=== PATIENT | male | born 1945 | race Caucasian/White ===

== ENCOUNTER 2020-09-24 10:31 | Inpatient (IN) | payer OTHER, MEDICAID ==
[~2020-09-24] VITALS: Ht 170.2 cm; Wt 85.4 kg
[2020-09-24] VITALS (24 sets, daily range): BP systolic 64–122; BP diastolic 35–58
[2020-09-24] MEDS: NOREPINEPHRINE 8 MG/250ML KIT 250 ML IV SCH (10:52)
[2020-09-24 11:24] LABS: Basophils # (auto) 0 10 ^3/uL (0-0.2); Eosinophils # (auto) 0 10 ^3/uL (0-0.8); Eosinophils % (auto) 0.2 % (0.0-7.0); Monocytes # (auto) 1.2 10 ^3/uL (0-1.3)
[2020-09-24 11:26] LABS: Basophils % (auto) 0.2 % (0.0-2.0); Hematocrit 51.5 % (41.0-53.0); Hemoglobin 14.2 g/dL (13.5-17.5); Lymphocytes % (auto) 16.9 % (10.0-50.0); Mean Corpuscular Hemoglobin 31.4 pg (28.0-32.0); Mean Corpuscular Hgb Conc. 27.5 g/dL (32.0-36.0); Mean Corpuscular Volume 114.2 fL (80.0-100.0); Monocytes % (auto) 9.9 % (0.0-12.0); Neutrophils # (auto) 8.5 10 ^3/uL (1.6-8.6); Neutrophils % (auto) 72.8 % (37.0-80.0); Platelet Count (auto) 251 10^3/uL (140-450); White Blood Cell 11.7 10^3/uL (4.4-10.8)
[2020-09-24] MEDS ORDERED: SODIUM CHLORIDE 0.9% 1,000 ML IV ONE ×3 (11:30→12:00)
[2020-09-24 11:53] LABS: Urine Bacteria FEW /hpf (None Seen); Urine Blood Negative /uL (Negative); Urine Hyaline Cast MANY /lpf (0 - 2); Urine Mucus FEW (None Seen); Urine Specific Gravity 1.022 (1.001-1.035); Urine WBC 3 /hpf (0 - 3)
[2020-09-24 11:55] LABS: Albumin 3.1 g/dL (3.4-5.0); Calcium 9.2 mg/dL (8.5-10.1); Potassium 4.4 mmol/L (3.5-5.1)
[2020-09-24] MEDS ORDERED: SODIUM BICARBONATE 8.4 % INJ 50ML VIAL IV ONE ×3 (12:00→15:00)
[2020-09-24 12:09] LABS: Lactic Acid w/Reflex 6.5 mmol/L (0.4-2.0)
[2020-09-24 12:19] LABS: BUN/Creatinine Ratio 13.5; Bilirubin, Total 0.4 mg/dL (0.2-1.0); Total Protein 6.6 g/dL (6.4-8.2)
[2020-09-24] MEDS ORDERED: InsuLIN REG 1unit/0.01ml Soln (100units/ml) IV ONE (12:30)
[2020-09-24] MEDS ORDERED: DEXTROSE (50%) 50ML SYRG IV PRN ×2 (12:45→15:00)
[2020-09-24] MEDS ORDERED: InsuLIN R (HUMAN) 100 UNITS in SODIUM CHL 0.9% 99 ML IV SCH ×3 (12:45→21:15)
--- NOTE | 2020-09-24 13:04 | NUR ---
RT NOTE: FIO2 INCREASED TO 80% FROM 45% DUE TO SPO2 READING IN THE 80'S. RN ELIER AWARE OF CHANGE. WILL CONTINUE TO MONITOR.
[2020-09-24] MEDS ORDERED: ACCU-CHEK COMFORT CURVE STRIP VI SCH (13:30)
--- NOTE | 2020-09-24 14:00 | NUR ---
RT Transport Note: Patient transported to ct with ERNESTO Jordan. Patient transported to and from procedure manually ventilated with bvm at 15 lpm, 100% o2. Patient on court recording monitor with alarms set and audible. Patient returned to room with no adverse reaction noted. Transport completed without incident.
--- NOTE | 2020-09-24 14:46 | NUR ---
RT NOTE: FIO2 INCREASED TO 100% FROM 80% POST ABG RESULTS.
[2020-09-24] MEDS ORDERED: SODIUM BICARBONATE 50ML VIAL 50 ML in SOD CHL 0.45% 1,000 ML IV SCH (15:00)
[2020-09-24] MEDS ORDERED: INSULIN LANTUS (GLARGINE) 1 /0.01ml (100units/ml) SC ONE (15:00)
[2020-09-24] MEDS ORDERED: LACTATED RINGER'S 2,000 ML IV ONE (15:00)
[2020-09-24] MEDS ORDERED: NITROGLYCERIN 0.4 MG SL TAB SL PRN (15:00)
[2020-09-24] MEDS ORDERED: MORPHINE SULF INJ 2 MG/ML SYRINGE 1ML IV PRN (15:00)
[2020-09-24] MEDS: ACCU-CHEK COMFORT CURVE STRIP VI SCH ×6 (15:21→22:30)
[2020-09-24 15:56] LABS: BUN/Creatinine Ratio 15.8; Calcium 7.1 mg/dL (8.5-10.1); Magnesium 2.8 mg/dL (1.6-2.6); Potassium 3.9 mmol/L (3.5-5.1)
--- NOTE | 2020-09-24 17:00 | NUR ---
Arrival note Pt admitted from ER. Pt on portable ventilator and connected to ICU monitoring and ventilator. Received pt with IV to L FA 20G, R AC 20G, R wrist 22g. Iv's patent on assessment. Pt on insulin gtt at 10 units/hr with accucheck taken and monitor reading "critically HI". Orders fro STAT LAB draw to assess accurate glucose level for proper intervention. COMPUTER TECHNOLOGY INSTRUCTOR JUAN aware of glucose. COMPUTER TECHNOLOGY INSTRUCTOR stated he will put central line in. Levophed at max rate of 30mcg b/p 125/58. IV site patent and no signs of infiltration noted. LR infusing as second liter bolus per CMV DRIVER. NGT placed in left nare with accurate placement verified via air bolus. Pt positive cough and gag and breathing over ventilator. Versed started per MD order for synchronization with ventilator. Vergara catheter draining to gravity secured below bladder. Skin intact with macedo to chest from defib pads. Pt being ruled out for COVID. Gi swab negative. Awaiting inhouse test.
--- NOTE | 2020-09-24 17:15 | NUR ---
Dark brown/black emesis suctioned from ET TUBE
[2020-09-24] MEDS: MIDAZOLAM DRIP 50 mg/50mL 50 ML IV SCH (17:45)
[2020-09-24] MEDS: fentaNYL Drip 2500mCg/250mlNS 250 ML IV SCH (17:45)
--- NOTE | 2020-09-24 18:20 | NUR ---
Kali at [facility] for central line placement
--- NOTE | 2020-09-24 18:49 | NUR ---
Respiratory note: ABG DONE, CRITICAL RESULTS REPORTED TO Maru ROACH AND RN NOTIFIED OF ABG RESULTS. NO NEW RESPIRATORY ORDERS GIVEN AT THIS TIME, REPEAT ABG IN AM. WILL CONTINUE TO MONITOR.
[2020-09-24] MEDS: ALBUTEROL SULF 2.5 MG/0.5ML(0.5%) NEB SOLN NEB SCH (18:50)
[2020-09-24] MEDS: IPRATROPIUM BROM 0.5 MG/2.5ML INH SOL NEB SCH (18:50)
--- NOTE | 2020-09-24 18:51 | NUR ---
Respiratory note: MED NEB TX HELD AT THIS TIME. COVID TEST RESULTS PENDING, AUXILIARY OPERATOR JORGEO AT BEDSIDE FOR CENTRAL LINE PLACEMENT. PT IN NO RESPIRATORY DISTRESS. WILL CONTINUE TO MONITOR.
--- NOTE | 2020-09-24 19:10 | NUR ---
Chest x-ray for central line placement verification. RON palomo stated ok to use line
--- NOTE | 2020-09-24 19:40 | NUR ---
REPORT RECEIVED AND ASSUMED CARE; SEE INTERVENTIONS FOR ASSESSMENT; SEE IV SPREADSHEET FOR GTTS; VS STABLE WITH PT. ON LEVOPHED GTT; PT/ S/P CPR ENROUTE TO [facility]ESS [facility] ER; WILL CONT. TO MONITOR.
[2020-09-24] MEDS ORDERED: InsuLIN REG 1unit/0.01ml Soln (100units/ml) ONE (20:15)
--- NOTE | 2020-09-24 20:20 | NUR ---
Report given to ERNESTO Rodriguez
[2020-09-24 20:22] LABS: Calcium 7.4 mg/dL (8.5-10.1)
[2020-09-24 20:29] LABS: BUN/Creatinine Ratio 16.8
[2020-09-24 20:33] LABS: Potassium 2.6 mmol/L (3.5-5.1)
[2020-09-24] MEDS ORDERED: VASOPRESSIN 20 UNIT/ML ONE (20:57)
[2020-09-24] MEDS ORDERED: POTASSIUM CHL 20MEQ/100ML 200 ML IV ONE (21:03)
[2020-09-24] MEDS: POTASSIUM CHL 20MEQ/100ML 100 ML IV SCH ×2 (21:15→23:15)
[2020-09-24] MEDS: VASOPRESSIN 50 UNITS in D5W 5% 247.5 ML IV SCH (21:15)
[2020-09-24] MEDS: metroNIDAZOLE 500MG/100ML 100 ML IV SCH (22:00)
[2020-09-24] MEDS: CLINDAMYCIN 300MG IV 50 ML IV SCH (23:00)
[2020-09-24] MEDS ORDERED: ALBUMIN 5% 250 ML IV ONE ×2 (23:00→23:35)
[2020-09-25] VITALS (95 sets, daily range): BP systolic 67–186; BP diastolic 42–156
[2020-09-25] MEDS: InsuLIN R (HUMAN) 100 UNITS in SODIUM CHL 0.9% 99 ML IV SCH ×4 (00:15→20:07)
[2020-09-25] MEDS ORDERED: INSULIN LANTUS (GLARGINE) 1 /0.01ml (100units/ml) SC ONE (00:15)
[2020-09-25] MEDS: ACCU-CHEK COMFORT CURVE STRIP VI SCH ×22 (00:21→22:30)
[2020-09-25] MEDS ORDERED: InsuLIN REG 1unit/0.01ml Soln (100units/ml) ONE ×2 (00:27→04:30)
[2020-09-25] MEDS ORDERED: SODIUM BICARBONATE 8.4% INJ 50ML SYRINGE ONE (00:30)
[2020-09-25 01:30] LABS: INR 1.12 (0.9-1.15)
[2020-09-25 03:38] LABS: Hematocrit 35.2 % (41.0-53.0); Hemoglobin 11.9 g/dL (13.5-17.5); Mean Corpuscular Hemoglobin 31.6 pg (28.0-32.0); Mean Corpuscular Hgb Conc. 33.7 g/dL (32.0-36.0); Mean Corpuscular Volume 93.7 fL (80.0-100.0); Platelet Count (auto) 99 10^3/uL (140-450); Red Blood Cells 3.76 10^6/uL (4.5-5.90); Red Cell Distribution Width 13.5 % (11.8-14.3)
--- NOTE | 2020-09-25 03:50 | NUR ---
UPDATED DAUGHTER ON PLAN OF CARE/ ESTABLISHED NEW PASSWORD.
[2020-09-25 04:06] LABS: White Blood Cell 1.1 10^3/uL (4.4-10.8)
[2020-09-25 04:07] LABS: Basophils % (manual) 0 (0.0-2.0); Blast Cells 0; Eosinophils % (manual) 0 (0-7); Metamyelocytes % 0; Myelocytes % 0; Promyelocytes % 0; Reactive Lymphocytes 0
[2020-09-25 04:15] LABS: Albumin 2.6 g/dL (3.4-5.0); Calcium 7.5 mg/dL (8.5-10.1); Magnesium 2.1 mg/dL (1.6-2.6); Potassium 3.1 mmol/L (3.5-5.1)
[2020-09-25] MEDS ORDERED: SODIUM BICARBONATE 50ML VIAL 150 ML in SOD CHL 0.45% 1,000 ML IV SCH (04:15)
[2020-09-25 04:18] LABS: BUN/Creatinine Ratio 15.9; Bilirubin, Total 0.4 mg/dL (0.2-1.0); Total Protein 4.6 g/dL (6.4-8.2)
[2020-09-25 04:23] LABS: Phosphorus 0.8 mg/dL (2.5-4.90)
[2020-09-25 05:19] LABS: Band Neutrophils % (manual) 26; Lymphocytes % (manual) 16 (10.0-50.0); Monocytes % (manual) 12 (0-12)
--- NOTE | 2020-09-25 05:38 | NUR ---
PAGED HOSPITALIST FOR SECOND TIME.
[2020-09-25] MEDS: CLINDAMYCIN 300MG IV 50 ML IV SCH (06:00)
[2020-09-25] MEDS ORDERED: PHENYLEPHRINE IV 250 ML IV ONE (06:09)
[2020-09-25] MEDS ORDERED: POTASSIUM PHOSPHATE 22 MEQ in SODIUM CHL 0.9% 100 ML IV ONE (06:15)
[2020-09-25] MEDS: IPRATROPIUM BROM 0.5 MG/2.5ML INH SOL NEB SCH ×5 (06:20→23:53)
[2020-09-25] MEDS: ALBUTEROL SULF 2.5 MG/0.5ML(0.5%) NEB SOLN NEB SCH ×5 (06:20→23:53)
[2020-09-25] MEDS: metroNIDAZOLE 500MG/100ML 100 ML IV SCH (07:00)
--- NOTE | 2020-09-25 07:35 | NUR ---
REPORT REPORT RECEIVED FROM JAYLIN OROZCO, CARE ASSUMED.
[2020-09-25] MEDS: POTASSIUM CHL 20MEQ/100ML 100 ML IV SCH ×2 (07:57→08:15)
--- NOTE | 2020-09-25 09:00 | NUR ---
SEDATION VACATION HELD PATIENT TOO UNSTABLE FOR SEDATION VACATION AT THIS TIME. AWARE.
[2020-09-25] MEDS: PHENYLEPHRINE IV 250 ML IV SCH ×2 (09:33→14:18)
[2020-09-25] MEDS: MIDAZOLAM DRIP 50 mg/50mL 50 ML IV SCH (09:34)
--- NOTE | 2020-09-25 09:50 | NUR ---
MD VISIT DR.BAVEJA ALMANZA AT BEDSIDE. MD AWARE OF VENTILATOR SETTINGS, ABG, LABS, VITAL SIGNS, AND IV DRIPS. NEW VENT AND MEDICATION ORDERS RECEIVED. RT AT BEDSIDE TO MAKE VENT CHANGES.
[2020-09-25] MEDS: INSULIN LANTUS (GLARGINE) 1 /0.01ml (100units/ml) SC SCH (10:00)
[2020-09-25] MEDS: PANTOPRAZOLE 40 MG/10 ML VIAL INJ IV SCH (10:09)
[2020-09-25] MEDS: ENOXAPARIN SOD 30 MG/0.3 ML SYRINGE SC SCH (10:09)
[2020-09-25] MEDS ORDERED: OPTISON 3ml Vial for INJ IV ONE ×2 (10:30→10:37)
--- NOTE | 2020-09-25 10:30 | NUR ---
ECHO HEEL PAINTER AT BEDSIDE.
[2020-09-25] MEDS: NOREPINEPHRINE 8 MG/250ML KIT 250 ML IV SCH ×2 (10:31→14:18)
--- NOTE | 2020-09-25 11:20 | NUR ---
IN-HOUSE COVID SWAB SWAB OBTAINED AND WALKED TO LAB.
[2020-09-25] MEDS ORDERED: PIPERACILLIN-TAZOB 2.25GM 50 ML IV SCH (12:00)
[2020-09-25] MEDS ORDERED: PIPERACILLIN-TAZOB 3.375GM 100 ML IV SCH (12:00)
[2020-09-25] MEDS: HYDROCORTISONE SOD SUCC 100 MG/2ML INJ VIAL IV SCH ×2 (12:00→17:46)
--- NOTE | 2020-09-25 12:20 | NUR ---
LINENS/CARE ORAL CARE COMPLETE. PARTIAL LINEN CHANGE COMPLETE. PATIENT REPOSITIONED ON SIDE. ALL EXTREMITIES OFF LOADED ON PILLOWS. RECTAL TEMPERATURE 101.5, ICE PACKS APPLIED TO TRUNK. PT WITHDRAWAL FROM PAIN. NOT OPENING EYES. BREATHING OVER VENT AND INTERMITTENTLY STACKING BREATHS. WILL CONTINUE TO MONITOR.
--- NOTE | 2020-09-25 12:45 | NUR ---
WOUND PHOTO PHOTOGRAPHS OBTAINED OF BUTTOCKS AND RIGHT LATERAL EAR.
--- NOTE | 2020-09-25 12:50 | NUR ---
MD VISIT AT BEDSIDE ASSESSING PATIENT.
--- NOTE | 2020-09-25 13:10 | NUR ---
DESATURATION AFTER ACTIVITY PATIENTS O2 SATURATION DROPPED TO 82%. WITH FIO2 BOOST, PATIENT ONLY ABLE TO MAINTAIN 85%. RT PAGED. FIO2 INCREASED TO 80%. PATIENT O2 SATURATION STILL ONLY MAINTAINING 86%, ETT SUCTIONING PERFORMED. BROWN SECRETIONS NOTED AT BASE. FIO2 INCREASED TO 90% ON VENTILATOR. O2 SATURATION NOW 90%. WILL CONTINUE TO MONITOR.
--- NOTE | 2020-09-25 13:22 | NUR ---
MD VISIT Remberto VILLAGRAN. MD AWARE OF IV DRIPS, LABS, AND VITAL SIGNS. MD PLANS TO CALL PATIENT DAUGHTER AND UPDATE ON STATUS.
--- NOTE | 2020-09-25 13:35 | NUR ---
MD VISIT DR.OLADELE ALMANZA AT BEDSIDE. MD REVIEWING MEDICAL CHART.
[2020-09-25] MEDS ORDERED: PIPERACILLIN-TAZO 4.5GM 100 ML IV SCH (14:00)
[2020-09-25] MEDS: LINEZOLID 600MG/300ML 300 ML IV SCH (14:28)
[2020-09-25] MEDS: fentaNYL Drip 2500mCg/250mlNS 250 ML IV SCH (15:00)
[2020-09-25] MEDS: PHENYLEPHRINE INJ 40 MG in SODIUM CHL 0.9% 250 ML IV SCH (15:30)
--- NOTE | 2020-09-25 15:50 | NUR ---
TEMPERATURE PATIENT RECTAL TEMP REACHING 102.0. COOLING MEASURES CONTINUED. COOLING BLANKET PLACED ON TOP OF PATIENT.
[2020-09-25] MEDS: AZITHROMYCIN 500MG/ 250ML 250 ML IV SCH (16:00)
[2020-09-25 16:39] LABS: Basophils # (auto) 0 10 ^3/uL (0-0.2); Basophils % (auto) 0.1 % (0.0-2.0); Eosinophils # (auto) 0 10 ^3/uL (0-0.8); Eosinophils % (auto) 0.2 % (0.0-7.0); Hematocrit 34.5 % (41.0-53.0); Lymphocytes # (auto) 0.5 10 ^3/uL (0.4-5.4); Mean Corpuscular Hemoglobin 31.5 pg (28.0-32.0); Mean Corpuscular Hgb Conc. 34.8 g/dL (32.0-36.0); Mean Corpuscular Volume 90.6 fL (80.0-100.0); Monocytes # (auto) 0.4 10 ^3/uL (0-1.3); Monocytes % (auto) 5.9 % (0.0-12.0); Neutrophils # (auto) 5.2 10 ^3/uL (1.6-8.6); Neutrophils % (auto) 85.8 % (37.0-80.0); Nucleated Red Blood Cells % 0.1 %; Platelet Count (auto) 92 10^3/uL (140-450); Red Blood Cells 3.81 10^6/uL (4.5-5.90); Red Cell Distribution Width 13.9 % (11.8-14.3)
[2020-09-25 16:54] LABS: INR 1.3 (0.9-1.15)
[2020-09-25 16:55] LABS: Partial Thromboplastin Time 34.7 sec (23.0-31.2)
[2020-09-25 17:00] LABS: Albumin 2.2 g/dL (3.4-5.0); Magnesium 1.4 mg/dL (1.6-2.6); Potassium 3.7 mmol/L (3.5-5.1)
[2020-09-25 17:03] LABS: Bilirubin, Direct 0.3 mg/dL (0-0.2); Bilirubin, Total 0.5 mg/dL (0.2-1.0); Total Protein 4.4 g/dL (6.4-8.2)
[2020-09-25 17:07] LABS: Phosphorus 1.8 mg/dL (2.5-4.90)
--- NOTE | 2020-09-25 17:31 | NUR ---
ADMISSION PAST MEDICAL HISTORY HARD TO OBTAIN. SISTER STATED HE WAS DIABETIC, NEW DIAGNOSED BUT UNABLE TO PROVIDE FURTHER INFORMATION. PATIENT DOES NOT GO TO [facility]CTORS FOR CHECK UP'S. PATIENT WAS ADOPTED SO UNKNOWN FAMILY HISTORY. PATIENT LIVES ALONE IN MOBILE HOME.
[2020-09-25] MEDS: SODIUM BICARBONATE 50ML VIAL 75 ML in SOD CHL 0.45% 1,000 ML IV SCH (17:34)
--- NOTE | 2020-09-25 18:00 | NUR ---
COOLING MEASURES COOLING BLANKET PLACED UNDER PATIENT. NEW ICE PACKS APPLIED TO TRUNK. RECTAL TEMPERATURE 102.2. WILL CONTINUE TO MONITOR.
--- NOTE | 2020-09-25 18:03 | NUR ---
PAGED NOTIFIED OF CMP RESULTS. ORDERS OBTAINED FOR MAGNESIUM AND CALCIUM REPLACEMENT.
[2020-09-25] MEDS ORDERED: CALCIUM GLUC 4.65meq/50ml D5AE 50 ML IV ONE (18:15)
--- NOTE | 2020-09-25 19:26 | NUR ---
REPORT REPORT GIVEN TO JAYLIN OROZCO, CARE ENDORSED.
[2020-09-25] MEDS ORDERED: MAGNESIUM SULFATE 1GM/100ML 100 ML IV ONE (19:30)
--- NOTE | 2020-09-25 21:19 | NUR ---
SEDATION VACATION NOT PERFORMED IT IS NOT APPROPRIATE AT THIS TIME.
[2020-09-25] MEDS: MEROPENEM 500MG IVPB 50 ML IV SCH (22:21)
[2020-09-26] VITALS (103 sets, daily range): BP systolic 88–221; BP diastolic 54–112
[2020-09-26] MEDS: SODIUM BICARBONATE 50ML VIAL 75 ML in SOD CHL 0.45% 1,000 ML IV SCH ×3 (00:45→22:15)
[2020-09-26] MEDS: ACCU-CHEK COMFORT CURVE STRIP VI SCH ×11 (00:47→23:47)
[2020-09-26] MEDS: InsuLIN R (HUMAN) 100 UNITS in SODIUM CHL 0.9% 99 ML IV SCH (00:59)
[2020-09-26] MEDS: HYDROCORTISONE SOD SUCC 100 MG/2ML INJ VIAL IV SCH ×5 (01:09→23:47)
[2020-09-26] MEDS: LINEZOLID 600MG/300ML 300 ML IV SCH ×2 (02:00→13:40)
[2020-09-26 05:10] LABS: Basophils # (auto) 0 10 ^3/uL (0-0.2); Basophils % (auto) 0.1 % (0.0-2.0); Eosinophils # (auto) 0 10 ^3/uL (0-0.8); Eosinophils % (auto) 0.1 % (0.0-7.0); Hemoglobin 12.5 g/dL (13.5-17.5); Lymphocytes # (auto) 0.7 10 ^3/uL (0.4-5.4); Lymphocytes % (auto) 6.5 % (10.0-50.0); Mean Corpuscular Hgb Conc. 32.9 g/dL (32.0-36.0); Mean Corpuscular Volume 94.1 fL (80.0-100.0); Monocytes # (auto) 0.6 10 ^3/uL (0-1.3); Neutrophils # (auto) 10.1 10 ^3/uL (1.6-8.6); Neutrophils % (auto) 88.3 % (37.0-80.0); Nucleated Red Blood Cells % 0.1 %; Platelet Count (auto) 85 10^3/uL (140-450); Potassium 4.5 mmol/L (3.5-5.1); Red Blood Cells 4.04 10^6/uL (4.5-5.90); Red Cell Distribution Width 14.6 % (11.8-14.3); White Blood Cell 11.5 10^3/uL (4.4-10.8)
[2020-09-26 05:21] LABS: Albumin 2.1 g/dL (3.4-5.0); BUN/Creatinine Ratio 17.3; Bilirubin, Direct 0.3 mg/dL (0-0.2); Bilirubin, Total 0.5 mg/dL (0.2-1.0); Calcium 6.3 mg/dL (8.5-10.1); INR 1.44 (0.9-1.15); Magnesium 1.7 mg/dL (1.6-2.6); Partial Thromboplastin Time 38.5 sec (23.0-31.2); Total Protein 4.7 g/dL (6.4-8.2)
[2020-09-26] MEDS: ALBUTEROL SULF 2.5 MG/0.5ML(0.5%) NEB SOLN NEB SCH ×4 (06:45→23:46)
[2020-09-26] MEDS: IPRATROPIUM BROM 0.5 MG/2.5ML INH SOL NEB SCH ×4 (06:45→23:46)
--- NOTE | 2020-09-26 07:25 | NUR ---
REPORT REPORT RECEIVED FROM JAYLIN OROZCO, CARE ASSUMED. VS STABLE AT THIS TIME. WILL CONTINUE TO MONITOR.
--- NOTE | 2020-09-26 07:30 | NUR ---
INSULIN GTT INSULIN GTT ALGORITHM DECREASED TO ALGORITHM I. BLOOD SUGAR 167, RATE 1.5 UNITS/HR PER PROTOCOL.
[2020-09-26] MEDS: VASOPRESSIN 50 UNITS in D5W 5% 247.5 ML IV SCH ×2 (07:51→21:52)
[2020-09-26] MEDS: NOREPINEPHRINE BITARTRATE 16 MG in SODIUM CHL 0.9% 250 ML IV SCH ×2 (07:52→13:54)
[2020-09-26] MEDS ORDERED: InsuLIN R (HUMAN) 100 UNITS in SODIUM CHL 0.9% 99 ML IV SCH (08:00)
[2020-09-26] MEDS: PHENYLEPHRINE INJ 40 MG in SODIUM CHL 0.9% 250 ML IV SCH (08:10)
--- NOTE | 2020-09-26 08:59 | NUR ---
SEDATION VACATION HELD PATIENT REQUIRING HIGH FIO2 AND VASOPRESSOR THERAPY. UNSTABLE HEMODYNAMICALLY. AWARE.
--- NOTE | 2020-09-26 09:20 | NUR ---
HEMATOLOGY CONSULT DR.NANDA ALMANZA AT BEDSIDE.
--- NOTE | 2020-09-26 09:27 | NUR ---
GI CONSULT AT BEDSIDE ASSESSING PATIENT. REVIEWING MEDICAL CHART.
[2020-09-26] MEDS: MIDAZOLAM DRIP 50 mg/50mL 50 ML IV SCH (09:30)
--- NOTE | 2020-09-26 09:30 | NUR ---
Respiratory note: FIO2 DECREASED TO 80% .
[2020-09-26] MEDS: MEROPENEM 500MG IVPB 50 ML IV SCH ×2 (09:46→21:52)
[2020-09-26] MEDS: PANTOPRAZOLE 40 MG/10 ML VIAL INJ IV SCH (09:46)
--- NOTE | 2020-09-26 10:00 | NUR ---
MD VISIT DR.BAVEJA ALMANZA AT BEDSIDE. MD ORDERED FOR INSULIN GTT TO BE DISCONTINUED AND PLACED ON SLIDING SCALE.
--- NOTE | 2020-09-26 10:00 | NUR ---
WOUND CARE NOTE: IN TO SEE PATIENT AT THIS TIME PER WOUND CARE CONSULT REQUEST. PATIENT WAS NOTED UPON PRESENTATION TO THE ICU TO HAVE MULTIPLE SKIN INTEGRITY ISSUES. WOUND PHOTOS TAKEN AT THAT TIME BY BEDSIDE NURSE FOR REFERENCE, WOUND CONSULT ORDERED. PATIENT ADMITTED TO [facility] WITH DIAGNOSIS OF CARDIAC ARREST, DKA. CURRENT JAZMIN SCORE IS 10. PATIENT IS INTUBATED, SEDATED. SKIN/WOUND CARE PLAN UPDATED. PATIENT TURNED TO RIGHT SIDE TO VISUALIZE SACRAL WOUNDS. PATIENT IS NOTED TO HAVE MULTIPLE DEEP TISSUE INJURY PRESSURE INJURIES. PATIENT HAS DTI'S NOTED TO RIGHT SACRUM X 2, WITH OPEN BLISTER OVER UPPER SACRAL DTI. LEFT SACRUM HAS INTACT SERUM FILLED BLISTER NOTED TO UPPER LEFT SACRUM NEAR INTRAGLUTEAL FOLD, AND INTACT DTI TO THE LEFT SACRUM. PATIENT HAS ZGUARD AND OPTIFOAM GENTLE SACRAL DRESSING APPLIED TO UPPER DTI'S. PATIENT REPOSITIONED ONTO LEFT SIDE, REDISTRIBUTING PRESSURE POINTS WITH PILLOWS. PATIENT ALSO NOTED TO HAVE A DARK PURPLE DTI NOTED TO RIGHT EARLOBE. LEFT OPEN TO AIR. MEDIAL CHEST HAS CONTACT CASILLAS THAT ARE SCABBED CLOSED TO THE CHEST FOLLOWING CPR. LEFT OPEN TO AIR. NEW WOUND PHOTOS TAKEN AT THIS TIME FOR REFERENCE. RECOMMEND: FREQUENT SIDE TO SIDE POSITIONING, AVOIDING SUPINE Q 2 HOURS, PRN CONDITION PERMITS, WITH PRESSURE REDISTRIBUTION USING PILLOWS/WEDGES, BID/PRN APPLICATION WITH ZGUARD TO OPEN SACRAL WOUND, COVERING UPPER MEDIAL SACRUM WITH OPTIFOAM GENTLE SACRAL DRESSING, AVOID MASSAGE OF ANY MAROON OR PURPLE SKIN AREAS, ICU LOW AIRLOSS BED, TRANSFERRING PATIENT ONTO AIR BED IF SENT TO TELE FLOOR; SKIN/WOUND CARE PLAN, DIETARY CONSULT, CONTINUED MONITORING BY WOUND CARE TEAM. Addendum: 09/26/20 at 1355 by Nora Forbes RN Amended: Links added.
[2020-09-26] MEDS: ENOXAPARIN SOD 30 MG/0.3 ML SYRINGE SC SCH (10:02)
--- NOTE | 2020-09-26 10:10 | NUR ---
LOVENOX AWARE OF LOW TRENDING PLATELET COUNT. MD WISHES TO CONTINUE WITH LOVENOX LONG PLATELET COUNT IS GREATER THAN 50 AND NO SIGNS OF ACTIVE BLEEDING NOTED.
[2020-09-26] MEDS: INSULIN LANTUS (GLARGINE) 1 /0.01ml (100units/ml) SC SCH (10:23)
[2020-09-26] MEDS: InsuLIN REG 1unit/0.01ml Soln (100units/ml) SC SCH ×4 (11:54→23:41)
--- NOTE | 2020-09-26 12:17 | NUR ---
Nutrition Assessment Please see attached link for complete assessment Est energy needs BW 86 [phone] kcal (23-25 kcal/kg BW), Est protein needs: 68-86 g (0.8-1.0g/kg BW r/t elev RFT severe hypoalb) Will reassess prn. Addendum: 09/26/20 at [address] Amended: Links added.
--- NOTE | 2020-09-26 13:16 | NUR ---
MD VISIT Remberto VILLAGRAN AND DR.OLADELE ALMANZA AT BEDSIDE. MD'S AWARE OF IV DRIPS AND VITAL SIGNS. Anabelle VILLAGRAN. WANTING TO ATTEMPT SEDATION HOLIDAY TO ASSESS NEURO STATUS.
--- NOTE | 2020-09-26 13:20 | NUR ---
SEDATION HOLIDAY ALL SEDATION TITRATED OFF FOR SEDATION HOLIDAY PER MD REQUEST.
[2020-09-26] MEDS ORDERED: FUROSEMIDE 20 MG/2 ML VIAL IV ONE (13:30)
--- NOTE | 2020-09-26 14:49 | NUR ---
FAMILY PATIENT DAUGHTER DEVON CALLED FOR UPDATE. PASSWORD PROVIDED. UPDATED ON STATUS AND PLAN OF CARE.
[2020-09-26] MEDS: fentaNYL Drip 2500mCg/250mlNS 250 ML IV SCH ×2 (15:00→23:08)
[2020-09-26] MEDS: AZITHROMYCIN 500MG/ 250ML 250 ML IV SCH (15:56)
--- NOTE | 2020-09-26 16:30 | NUR ---
CHG BATH CHG BATH AND PARTIAL LINEN CHANGE COMPLETE. ORAL CARE PERFORMED. PATIENT TOLERATED ACTIVITY WELL. NO DESATURATION NOTED. VS REMAIN STABLE AT THIS TIME. PATIENT DOES NOT OPEN EYES OR ATTEMPT TO MOVE EXTREMITIES. ALL EXTREMITIES OFF LOADED ON PILLOWS. ALARMS IN PLACE. BED LOCKED IN LOWEST POSITION.
--- NOTE | 2020-09-26 17:50 | NUR ---
ROUNDING NOTE PATIENT CONTINUES TO STAY OFF SEDATION AT THIS TIME. PATIENT HAS NOT BEGUN TO WAKE UP OR ATTEMPT TO OPEN EYES. VS REMAIN STABLE AND PATIENT CONTINUES TO TOLERATE VENTILATION. COUGH AND GAG HYPOACTIVE. WILL CONTINUE TO MONITOR.
--- NOTE | 2020-09-26 19:09 | NUR ---
REPORT REPORT GIVEN TO LION OROZCO, CARE ENDORSED.
--- NOTE | 2020-09-26 20:15 | NUR ---
OPENING NOTE: INTUBATED AND OFF SEDATION. UNRESPONSIVE, EVEN TO NOXIOUS STIMULI. PUPILS PINPOINT, DIFFICULT TO ASSESS REACTIVITY TO LIGHT. SINUS TACHY, HR 100s. SBP > 100, MAP > 65 ON LEVOPHED AND VASOPRESSIN GTT. 7.0 ETT, 24 AT THE LIP. LS INTERMITTENTLY CLEAR, INTERMITTENTLY WITH RHONCHI, AND DIMINISHED THROUGHOUT. STACKING BREATHS IN THE 20s. SpO2>95% ON CURRENT VENT SETTINGS. NGT TO LIS, + AIR BOLUS, BILIOUS OUTPUT. ABD SOFT. HYPOACTIVE BS. UNKNOWN LBM. LISA PATENT AND INTACT, SCROTUM AND PENIS EDEMATOUS, YELLOW URINE OUTPUT. SEE SKIN AND WOUND FLOWSHEET FOR ASSESSMENT. LEFT IJ TLC, CDI, AND PATENT WITH BLOOD RETURN. RIGHT AC 20 G PIV, CDI, AND PATENT WITH BLOOD RETURN. LEFT FOREARM 20 G PIV, CDI, AND PATENT WITH BLOOD RETURN. REINFORCED POC. MAINTAINED PATIENT SAFETY: BED LOCKED AND IN THE LOWEST POSITION, FREQUENT VISUAL CHECKS. SOFT MITTENS ON FOR SAFETY WILL CONT CARE
--- NOTE | 2020-09-26 21:00 | NUR ---
SEDATION VACATION: SEDATION OFF SINCE THIS AFTERNOON. Addendum: 09/26/20 at 2202 by Irina Adams RN RN Amended: Links added.
--- NOTE | 2020-09-26 23:13 | NUR ---
FENTANYL GTT RESTARTED: BREATHING IN THE 30s WITH DESATURATION NOTED. NOTED TO BE GROSSLY UNRESPONSIVE STILL, BUT MOVING JAW NOW. VSS. WILL CONT CARE
[2020-09-27] VITALS (104 sets, daily range): BP systolic 79–157; BP diastolic 48–89
[2020-09-27] MEDS: PHENYLEPHRINE INJ 40 MG in SODIUM CHL 0.9% 250 ML IV SCH ×2 (00:20→16:53)
--- NOTE | 2020-09-27 02:00 | NUR ---
DESATURATION DOWN TO 85% S/P LINEN CHANGE: RR IN THE 30s, STACKING BREATHS. ELIER, RT MADE AWARE. FiO2 INCREASED TO 70%. 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
--- NOTE | 2020-09-27 02:00 | NUR ---
WOUND CARE NOTE: SACRUM: REMOVED PREVIOUS DRESSING. SMALL OPEN AREA WITH MINIMAL DRAINAGE. CLEANSED WITH SOAP AND WATER. PAT DRY WITH STERILE GAUZE, COVERED WITH GENTLE OPTIFOAM.
--- NOTE | 2020-09-27 02:00 | NUR ---
BED BATH WITH CHG WIPES, MARIE CARE, LISA CARE, ORAL CARE, AND PARTIAL LINEN CHANGE COMPLETED
--- NOTE | 2020-09-27 02:30 | NUR ---
SpO2>92% ON 70% FiO2
[2020-09-27] MEDS: LINEZOLID 600MG/300ML 300 ML IV SCH ×2 (02:39→13:51)
[2020-09-27] MEDS: SODIUM BICARBONATE 50ML VIAL 75 ML in SOD CHL 0.45% 1,000 ML IV SCH ×2 (02:39→13:50)
[2020-09-27] MEDS: ACCU-CHEK COMFORT CURVE STRIP VI SCH ×6 (03:53→23:35)
[2020-09-27] MEDS: InsuLIN REG 1unit/0.01ml Soln (100units/ml) SC SCH ×6 (03:53→23:35)
--- NOTE | 2020-09-27 04:00 | NUR ---
FAMILY UPDATE: SPOKE WITH PATIENT'S DAUGHTER, DEVON. AFTER PASSWORD VERIFIED UPDATED ON PATIENT'S STATUS. PER DEVON, SHE WORKS AT THE [employer] IN [place] FROM [phone] TODAY AND TOMORROW AND WILL BE UNABLE TO ANSWER HER CELL PHONE AT THAT TIME. SHE STATES THAT SHE LAST SPOKE WITH DR. AMAYA SEVERAL DAYS AGO AND IF HE NEEDS TO GET A HOLD OF HER, IT WILL BE AFTER 1430. DEVON STATES THAT SHE SPOKE WITH THE FAMILY, AND CURRENTLY THEY WANT TO GIVE THE PATIENT MORE TIME BEFORE MAKING ANY DECISIONS REGARDING VARNISHER PLAN OF CARE. WILL ENDORSE TO DAY SHIFT.
--- NOTE | 2020-09-27 04:00 | NUR ---
FiO2 DECREASED BY RT, SpO2>95%
[2020-09-27 04:13] LABS: Basophils # (auto) 0 10 ^3/uL (0-0.2); Basophils % (auto) 0.1 % (0.0-2.0); Eosinophils # (auto) 0 10 ^3/uL (0-0.8); Hematocrit 30.7 % (41.0-53.0); Hemoglobin 10.8 g/dL (13.5-17.5); Lymphocytes # (auto) 0.3 10 ^3/uL (0.4-5.4); Lymphocytes % (auto) 3.2 % (10.0-50.0); Mean Corpuscular Hemoglobin 31.8 pg (28.0-32.0); Mean Corpuscular Volume 90.7 fL (80.0-100.0); Monocytes # (auto) 0.3 10 ^3/uL (0-1.3); Monocytes % (auto) 2.4 % (0.0-12.0); Neutrophils # (auto) 10.1 10 ^3/uL (1.6-8.6); Neutrophils % (auto) 94.3 % (37.0-80.0); Nucleated Red Blood Cells % 0.2 %; Platelet Count (auto) 77 10^3/uL (140-450); Red Blood Cells 3.39 10^6/uL (4.5-5.90); Red Cell Distribution Width 14.6 % (11.8-14.3); White Blood Cell 10.7 10^3/uL (4.4-10.8)
[2020-09-27] MEDS: NOREPINEPHRINE BITARTRATE 16 MG in SODIUM CHL 0.9% 250 ML IV SCH ×2 (04:32→17:46)
[2020-09-27 04:33] LABS: Albumin 1.9 g/dL (3.4-5.0); Magnesium 1.6 mg/dL (1.6-2.6); Potassium 3.2 mmol/L (3.5-5.1)
[2020-09-27 04:36] LABS: BUN/Creatinine Ratio 19.2; Bilirubin, Direct 0.3 mg/dL (0-0.2); Bilirubin, Total 0.7 mg/dL (0.2-1.0); Total Protein 4.5 g/dL (6.4-8.2)
[2020-09-27 04:43] LABS: Calcium 5.8 mg/dL (8.5-10.1)
[2020-09-27 04:45] LABS: INR 1.38 (0.9-1.15); Partial Thromboplastin Time 43.8 sec (23.0-31.2)
--- NOTE | 2020-09-27 04:56 | NUR ---
CRITICAL CALCIUM: LAB CALLED WITH CRITICAL CALCIUM OF 5.8. ALBUMIN IS 1.9. CORRECTED CALCIUM FOR HYPOALBUMINEMIA IS 7.5. WILL ENDORSE TO DAY SHIFT.
--- NOTE | 2020-09-27 05:19 | NUR ---
NEURO STATUS: REMAINS GROSSLY UNRESPONSIVE. HOWEVER, WITH NOXIOUS STIMULI, RR INCREASES TO MID TO HIGH 20s. WILL KEEP SEDATION IS FOR VENTILATOR SYNCHRONY
[2020-09-27] MEDS: HYDROCORTISONE SOD SUCC 100 MG/2ML INJ VIAL IV SCH ×4 (05:29→23:35)
--- NOTE | 2020-09-27 05:30 | NUR ---
SCROTUM/SACRUM OOZING SEROUS FLUID: PLACED PILLOW CASE AROUND SCROTUM TO WICK MOISTURE.
[2020-09-27] MEDS: ALBUTEROL SULF 2.5 MG/0.5ML(0.5%) NEB SOLN NEB SCH ×3 (06:35→18:34)
[2020-09-27] MEDS: IPRATROPIUM BROM 0.5 MG/2.5ML INH SOL NEB SCH ×3 (06:35→18:34)
--- NOTE | 2020-09-27 07:23 | NUR ---
REPORT AND CARE ENDORSED TO ERNESTO CARTER
--- NOTE | 2020-09-27 07:30 | NUR ---
Opening Shift Note Assumed care of patient, ET to [facility] vent, sedated. No S/S of distress/SOB or pain. LT nare NGT to LIS draining yellow green, minimal amount. See interventions for complete assessment. Bed locked on low position, side rails up x2, bed alarms on at all times, will continue to monitor for changes Q1hr and PRN.
--- NOTE | 2020-09-27 08:20 | NUR ---
Dr Reyes at bedside, updated on patient's status. Patient seen and examined. Will carry out new orders.
[2020-09-27] MEDS: INSULIN LANTUS (GLARGINE) 1 /0.01ml (100units/ml) SC SCH (09:48)
[2020-09-27] MEDS: PANTOPRAZOLE 40 MG/10 ML VIAL INJ IV SCH (10:00)
[2020-09-27] MEDS: MEROPENEM 500MG IVPB 50 ML IV SCH ×2 (10:00→21:36)
--- NOTE | 2020-09-27 10:54 | NUR ---
Paged Dr Bowden regarding patient's potassium 3.2, calcium 5.8, platelet 77. Lovenox on hold. Awaiting call back.
--- NOTE | 2020-09-27 12:56 | NUR ---
Dr Remberto Singh at bedside, updated on patient's status. Informed of potassium 3.2, calcium 5.8, platelet 77. Orders received, read back and verified. Will carry out.
[2020-09-27] MEDS ORDERED: POTASSIUM CHL 20MEQ/100ML 100 ML IV ONE (13:00)
[2020-09-27] MEDS: ENOXAPARIN SOD 30 MG/0.3 ML SYRINGE SC SCH (13:51)
--- NOTE | 2020-09-27 14:43 | NUR ---
Dr Jimenez at bedside, updated on patient's status. Patient seen and examined. Will carry out new orders.
--- NOTE | 2020-09-27 14:50 | NUR ---
Patient out of room to Head CT.
[2020-09-27] MEDS: MIDAZOLAM DRIP 50 mg/50mL 50 ML IV SCH (15:00)
--- NOTE | 2020-09-27 15:17 | NUR ---
Patient back to room from CT.
--- NOTE | 2020-09-27 15:36 | NUR ---
Urine sample sent to lab.
--- NOTE | 2020-09-27 15:48 | NUR ---
Received call from patient's daughter Maya who's able to provide password. Updated on patient's status and POC, verbalized understanding. All questions and concerns addressed.
[2020-09-27] MEDS: AZITHROMYCIN 500MG/ 250ML 250 ML IV SCH (15:59)
[2020-09-27 16:24] LABS: Alcohol, Urine < 3.0 mg/dL (0-10); Amphetamine Screen, Urine NEGATIVE (NEGATIVE); Barbiturate Scree,Urine NEGATIVE (NEGATIVE); Benzodiazephine Screen, Urine POSITIVE (NEGATIVE); Cannabinoid Screen, Urine NEGATIVE (NEGATIVE); Cocaine Screen, Urine NEGATIVE (NEGATIVE); Opiate Scree,Urine NEGATIVE (NEGATIVE); Phencyclidine Screen, Urine NEGATIVE (NEGATIVE)
--- NOTE | 2020-09-27 20:15 | NUR ---
OPENING NOTE: INTUBATED AND ON LIGHT SEDATION. UNRESPONSIVE, EVEN TO NOXIOUS STIMULI. PUPILS PINPOINT, DIFFICULT TO ASSESS REACTIVITY TO LIGHT. NSR TO SINUS TACH, HR 90-100s. SBP > 100, MAP > 65 ON LEVOPHED AND VASOPRESSIN GTT. 7.0 ETT, 24 AT THE LIP. LS INTERMITTENTLY CLEAR, ANDDIMINISHED THROUGHOUT. STACKING BREATHS IN THE 20s. SpO2>95% ON CURRENT VENT SETTINGS. NGT TO LIS, + AIR BOLUS, BILIOUS OUTPUT. ABD SOFT. HYPOACTIVE BS. UNKNOWN LBM. LISA PATENT AND INTACT, SCROTUM AND PENIS EDEMATOUS, YELLOW URINE OUTPUT. SEE SKIN AND WOUND FLOWSHEET FOR ASSESSMENT. LEFT IJ TLC, CDI, AND PATENT WITH BLOOD RETURN. RIGHT AC 20 G PIV, CDI, AND PATENT WITH BLOOD RETURN. LEFT FOREARM 20 G PIV, CDI, AND PATENT WITH BLOOD RETURN. REINFORCED POC. MAINTAINED PATIENT SAFETY: BED LOCKED AND IN THE LOWEST POSITION, FREQUENT VISUAL CHECKS. SOFT MITTENS ON FOR SAFETY WILL CONT CARE
--- NOTE | 2020-09-27 20:30 | NUR ---
TEMP 100.0F RECTALLY: PLACED COOL WASH CLOTH ON FOREHEAD, ICE PACK IN LEFT AXILLA, AND BEHIND NECK. WILL CONT CARE.
--- NOTE | 2020-09-27 20:54 | NUR ---
SEDATION VACATION - UNABLE TO COMPLETE AT THIS TIME: PATIENT ON LIGHT SEDATION FOR VENTILATOR SYNCHRONY. REMAINS GROSSLY UNRESPONSIVE OTHERWISE Addendum: 09/27/20 at 2054 by Irina Adams RN RN Amended: Links added.
[2020-09-27] MEDS: VASOPRESSIN 50 UNITS in D5W 5% 247.5 ML IV SCH (21:15)
--- NOTE | 2020-09-27 22:49 | NUR ---
TEMP 100.8F - CONTINUE WITH COOLING MEASURES - ICE PACK APPLIED TO GROIN
[2020-09-28] VITALS (102 sets, daily range): BP systolic 54–127; BP diastolic 46–78
[2020-09-28] MEDS: IPRATROPIUM BROM 0.5 MG/2.5ML INH SOL NEB SCH ×4 (00:46→18:10)
[2020-09-28] MEDS: ALBUTEROL SULF 2.5 MG/0.5ML(0.5%) NEB SOLN NEB SCH ×4 (00:46→18:10)
--- NOTE | 2020-09-28 01:00 | NUR ---
BED BATH WITH CHG WIPES, MARIE CARE, LISA CARE, ORAL CARE, HAIR CARE, AND FULL LINEN CHANGE COMPLETED
--- NOTE | 2020-09-28 01:05 | NUR ---
TEMP 101.1F DESPITE COOLING MEASURES - PLACED COOLING BLANKET UNDER PATIENT
--- NOTE | 2020-09-28 01:06 | NUR ---
WOUND CARE NOTE: SACRUM: REMOVED PREVIOUS DRESSING. SMALL OPEN AREA WITH MINIMAL DRAINAGE. CLEANSED WITH SOAP AND WATER. PAT DRY WITH STERILE GAUZE, COVERED WITH GENTLE OPTIFOAM. BILATERAL GLUTEAL DTIs: OPEN TO AIR. RIGHT SHOULDER BLADE SKIN TEAR: APPEARS TO BE POPPED BLISTER. COVERED WITH GENTLE OPTIFOAM. RIGHT WRIST (PREVIOUS ABG SITEs): OOZING SEROUS FLUID. COVERED WITH GENTLE OPTIFOAM
--- NOTE | 2020-09-28 01:08 | NUR ---
PIVs D/C'D: REMOVED BILATERAL PIVs D/T OUTDATED. TIPS INTACT. HEMOSTASIS ACHIEVED.
--- NOTE | 2020-09-28 01:15 | NUR ---
SCROTUM OOZING COPIOUS OF SEROUS FLUID: CLEANSED WITH SOAP AND WATER. PAT DRY. APPLIED THIN LAYER OF ZGUARD. CREATED SLING WITH INTERDRY TO ASSIST WITH MOISTURE WICKING
[2020-09-28] MEDS: SODIUM BICARBONATE 50ML VIAL 75 ML in SOD CHL 0.45% 1,000 ML IV SCH ×2 (01:20→18:10)
[2020-09-28] MEDS: LINEZOLID 600MG/300ML 300 ML IV SCH ×2 (01:25→13:32)
--- NOTE | 2020-09-28 01:55 | NUR ---
[facility] DRESSING AND INJECTION CAPS CHANGED VIA STERILE TECHNIQUE
--- NOTE | 2020-09-28 02:04 | NUR ---
TEMP DOWN TO 99.9F RECTALLY - CONTINUE WITH COOLING MEASURES
[2020-09-28] MEDS: InsuLIN REG 1unit/0.01ml Soln (100units/ml) SC SCH ×5 (03:30→20:00)
[2020-09-28] MEDS: DEXTROSE (50%) 50ML SYRG IV PRN (03:30)
[2020-09-28] MEDS: ACCU-CHEK COMFORT CURVE STRIP VI SCH ×5 (03:30→20:00)
--- NOTE | 2020-09-28 03:30 | NUR ---
BG 60 - 1 AMP D50 GIVEN
--- NOTE | 2020-09-28 03:50 | NUR ---
BG RECHECK 131
--- NOTE | 2020-09-28 04:10 | NUR ---
FAMILY UPDATE: SPOKE WITH PATIENT'S DAUGHTER, DEVON. AFTER PASSWORD VERIFIED, UPDATED ON PATIENT'S STATUS. PER DEVON, SHE IS UNAVAILABLE BY PHONE FROM [phone] TODAY BUT WILL BE OFF TOMORROW AND TUESDAY
[2020-09-28 04:28] LABS: Basophils # (auto) 0 10 ^3/uL (0-0.2); Basophils % (auto) 0.1 % (0.0-2.0); Eosinophils # (auto) 0 10 ^3/uL (0-0.8); Eosinophils % (auto) 0.2 % (0.0-7.0); Hematocrit 30.9 % (41.0-53.0); Hemoglobin 10.7 g/dL (13.5-17.5); Lymphocytes # (auto) 0.5 10 ^3/uL (0.4-5.4); Lymphocytes % (auto) 4.9 % (10.0-50.0); Mean Corpuscular Hemoglobin 31.1 pg (28.0-32.0); Mean Corpuscular Hgb Conc. 34.6 g/dL (32.0-36.0); Mean Corpuscular Volume 89.8 fL (80.0-100.0); Monocytes # (auto) 0.6 10 ^3/uL (0-1.3); Monocytes % (auto) 5.4 % (0.0-12.0); Neutrophils # (auto) 9.9 10 ^3/uL (1.6-8.6); Neutrophils % (auto) 89.4 % (37.0-80.0); Nucleated Red Blood Cells % 0.1 %; Platelet Count (auto) 56 10^3/uL (140-450); Red Blood Cells 3.44 10^6/uL (4.5-5.90); Red Cell Distribution Width 14.5 % (11.8-14.3)
[2020-09-28 04:52] LABS: Potassium 3.4 mmol/L (3.5-5.1)
[2020-09-28 04:53] LABS: Albumin 1.8 g/dL (3.4-5.0); Magnesium 1.8 mg/dL (1.6-2.6)
[2020-09-28 04:58] LABS: Bilirubin, Direct 0.6 mg/dL (0-0.2); Bilirubin, Total 1.1 mg/dL (0.2-1.0); Total Protein 4.8 g/dL (6.4-8.2)
[2020-09-28 05:00] LABS: BUN/Creatinine Ratio 24.6
[2020-09-28 05:01] LABS: Calcium 5.6 mg/dL (8.5-10.1); INR 1.08 (0.9-1.15); Partial Thromboplastin Time 36.6 sec (23.0-31.2)
--- NOTE | 2020-09-28 05:07 | NUR ---
CRITICAL CALCIUM: LAB CALLED WITH CRITICAL CALCIUM OF 5.6. ALBUMIN IS 1.. CORRECTED CALCIUM FOR HYPOALBUMINEMIA IS 7.4. WILL ENDORSE TO DAY SHIFT.
[2020-09-28] MEDS: HYDROCORTISONE SOD SUCC 100 MG/2ML INJ VIAL IV SCH ×3 (05:36→18:12)
--- NOTE | 2020-09-28 05:36 | NUR ---
BG CHECK 121
--- NOTE | 2020-09-28 06:05 | NUR ---
WOUND CARE NOTE: SCROTUM: INTERDRY SOAKING WITH SEROUS FLUID. SCROTUM AND PENIS MORE EDEMATOUS THAN PREVIOUSLY. REPLACED WITH NEW INTERDRY. RIGHT WRIST (PREVIOUS ABG PUNCTURE SITE): DRESSING SATURATED WITH SEROSANG DRAINAGE. COVERED WITH NEW GENTLE OPTIFOAM. RIGHT AC (PREVIOUS PIV SITE): SLIGHT OOZING NOTE. COVERED WITH GENTLE OPTIFOAM
[2020-09-28] MEDS ORDERED: CALCIUM GLUC 4.65meq/50ml D5AE 50 ML IV ONE (06:30)
[2020-09-28] MEDS: fentaNYL Drip 2500mCg/250mlNS 250 ML IV SCH (06:36)
--- NOTE | 2020-09-28 06:45 | NUR ---
SPOKE WITH PHARMACY ABOUT ELECTROLYTE REPLACEMENTS: ASKED IF ELECTROLYTE REPLACEMENTS CAN BE CONSOLIDATED INTO FEWER INFUSIONS. PER PHARMACIST, WILL HAVE TO RUN ELECTROLYTES SEPARATELY.
--- NOTE | 2020-09-28 07:15 | NUR ---
Assumed care of pt., report received per ERNESTO Arevalo. No distress noted, pt. intubated and vented, reading sinus rhythm 90's, will cont.to monitor for any changes, assessment is ongoing.
--- NOTE | 2020-09-28 07:21 | NUR ---
REPORT AND CARE ENDORSED TO ERNSETO HERRERA
[2020-09-28] MEDS ORDERED: MAGNESIUM SULFATE 1GM/100ML 100 ML IV ONE (07:30)
[2020-09-28] MEDS: POTASSIUM CHL 20MEQ/100ML 100 ML IV SCH ×3 (08:47→12:49)
--- NOTE | 2020-09-28 09:10 | NUR ---
Received call from radiologist, noted Left rib Fx, and increasing air in left pleural space, Dr. Brewer called, message left, will await further direction, assessment ongoing.
[2020-09-28] MEDS: ENOXAPARIN SOD 30 MG/0.3 ML SYRINGE SC SCH (10:00)
[2020-09-28] MEDS: INSULIN LANTUS (GLARGINE) 1 /0.01ml (100units/ml) SC SCH (10:07)
[2020-09-28] MEDS: PANTOPRAZOLE 40 MG/10 ML VIAL INJ IV SCH ×2 (10:08→22:38)
[2020-09-28] MEDS: PHENYLEPHRINE INJ 40 MG in SODIUM CHL 0.9% 250 ML IV SCH (10:08)
[2020-09-28] MEDS: MEROPENEM 500MG IVPB 50 ML IV SCH ×2 (10:08→22:21)
--- NOTE | 2020-09-28 11:30 | NUR ---
Dr. Reynaga present, states has made contact /c Dr. Anthony and Dr. Anthoyn will see pt. today, will cont.to monitor for any changes, assessment ongoing.
--- NOTE | 2020-09-28 11:33 | NUR ---
Nutrition Followup Note Wt 90.1kg Pt is intubated and sedated in ICU. Pt is currently with NPO diet order with no alternate nutrition ordered. Consider starting pt on TF as medically feasible and per MD approval. If TF is recommended consider Glucerna 1.2 at a goal rate of 70ml/hr Est energy needs BW 86 [phone] kcal (23-25 kcal/kg BW), Est protein needs: 68-86 g (0.8-1.0g/kg BW r/t elev RFT severe hypoalb) Will reassess prn. Labs: BUN 73H, Creat 2.97H, Alb 1.8L, Ca 5.6L, GLuc 129H BM: Pt with no BM per Rn note Skin: BS 13 mod risk,full details in vision care associate note PES: Altered nutrition related lab values r.t current chronic medical condition aeb elev RFT hypocalcemia, severe hypoalb hyperglycemia Impaired swallowing r.t current medical condition aeb pt`s intubated sedated with order of NPO Comments 1) advance diet as medically feasible 2) consider EN support with Glucerna 1.2 @ 70 ml/hr per MD approval 3) refer to CDE on DC 4) consider prostat 1 packet bid as RFT improve 6) continue current plan of care Expected Outcomes/Goals: pt will have improved labs pt will get > 75% of needs F/u high 2-3 days
--- NOTE | 2020-09-28 14:38 | NUR ---
Pt not tolerating sedation vacation, noted tachypnea RR 35-40 with breath stacking and ventilator asynchrony. RN at bedside restarting sedation.
--- NOTE | 2020-09-28 14:45 | NUR ---
ER Administration called and notified of new insurance information, spoke to Ramy, will call back if needed, no pt. distress noted, assessment ongoing.
[2020-09-28] MEDS: MIDAZOLAM DRIP 50 mg/50mL 50 ML IV SCH (15:00)
--- NOTE | 2020-09-28 15:21 | NUR ---
SPOKE WITH DR. BROWNE ON TELEPHONE, UPDATED MD ON MORNING ABG, VENT SETTINGS, AND PT STATUS. RECEIVED ORDERS TO DECREASE PEEP TO +8. ORDER READ BACK AND VERIFIED. DECREASED PEEP TO +8, FIO2 REMAINS AT 40%. NOTIFIED ERNESTO HERRERA OF CHANGES. ABG TO FOLLOW TOMORROW MORNING. WILL ENDORSE TO ONCOMING RT. PT NOW SEDATED, TOLERATING VENT WELL, NO S/S OF DISTRESS.
[2020-09-28] MEDS: AZITHROMYCIN 500MG/ 250ML 250 ML IV SCH (15:57)
[2020-09-28] MEDS: NOREPINEPHRINE BITARTRATE 16 MG in SODIUM CHL 0.9% 250 ML IV SCH (18:03)
--- NOTE | 2020-09-28 18:10 | NUR ---
Respiratory note: RECEIVED PT ON PAN V200 VENT V#20. VENT CONNECTED TO RED OUTLET AND O2 SOURCE. ALARMS ARE SET AND AUDIBLE. AMBU BAG AND MASK AT BEDSIDE. BS ARE FINE COURSE SXD VIA ETT FOR SMALL THICK BOYER. MED NEB TX GIVEN INLINE WITHOUT ADVERSE REACTION NOTED. RN JAVIER AT BEDSIDE. PTS CURRENT TEMP READS 98.1F. NO VENT CHANGES MADE WILL CONTINUE TO MONITOR.
--- NOTE | 2020-09-28 19:10 | NUR ---
No distress noted, pt. report given to ERNESTO Pereira. Care of pt. assumed per NOC RN, day shift RN relinquished care and signed off.
[2020-09-29] VITALS (100 sets, daily range): BP systolic 89–149; BP diastolic 46–83
[2020-09-29] MEDS: IPRATROPIUM BROM 0.5 MG/2.5ML INH SOL NEB SCH ×4 (00:36→18:39)
[2020-09-29] MEDS: ALBUTEROL SULF 2.5 MG/0.5ML(0.5%) NEB SOLN NEB SCH ×4 (00:36→18:39)
[2020-09-29] MEDS: LINEZOLID 600MG/300ML 300 ML IV SCH ×2 (01:40→14:15)
[2020-09-29] MEDS: SODIUM BICARBONATE 50ML VIAL 75 ML in SOD CHL 0.45% 1,000 ML IV SCH ×2 (01:40→09:15)
[2020-09-29] MEDS: ACCU-CHEK COMFORT CURVE STRIP VI SCH ×7 (04:00→23:54)
[2020-09-29] MEDS: InsuLIN REG 1unit/0.01ml Soln (100units/ml) SC SCH ×7 (04:00→23:54)
[2020-09-29 04:22] LABS: Basophils # (auto) 0 10 ^3/uL (0-0.2); Basophils % (auto) 0.1 % (0.0-2.0); Eosinophils # (auto) 0 10 ^3/uL (0-0.8); Eosinophils % (auto) 0.1 % (0.0-7.0); Hematocrit 30.7 % (41.0-53.0); Hemoglobin 10.5 g/dL (13.5-17.5); Lymphocytes # (auto) 0.4 10 ^3/uL (0.4-5.4); Lymphocytes % (auto) 3.8 % (10.0-50.0); Mean Corpuscular Hemoglobin 31.4 pg (28.0-32.0); Mean Corpuscular Hgb Conc. 34.3 g/dL (32.0-36.0); Mean Corpuscular Volume 91.5 fL (80.0-100.0); Monocytes # (auto) 0.7 10 ^3/uL (0-1.3); Monocytes % (auto) 6.6 % (0.0-12.0); Neutrophils % (auto) 89.4 % (37.0-80.0); Nucleated Red Blood Cells % 0.1 %; Platelet Count (auto) 42 10^3/uL (140-450); Red Blood Cells 3.35 10^6/uL (4.5-5.90); Red Cell Distribution Width 14.8 % (11.8-14.3); White Blood Cell 10.1 10^3/uL (4.4-10.8)
[2020-09-29 04:42] LABS: Potassium 3.5 mmol/L (3.5-5.1)
[2020-09-29 04:52] LABS: Albumin 1.8 g/dL (3.4-5.0); BUN/Creatinine Ratio 29.9; Bilirubin, Direct 0.5 mg/dL (0-0.2); Bilirubin, Total 0.9 mg/dL (0.2-1.0); Magnesium 2.3 mg/dL (1.6-2.6); Total Protein 4.9 g/dL (6.4-8.2)
[2020-09-29 04:58] LABS: Calcium 5.7 mg/dL (8.5-10.1)
[2020-09-29 05:05] LABS: INR 1.03 (0.9-1.15); Partial Thromboplastin Time 32.3 sec (23.0-31.2)
[2020-09-29] MEDS: HYDROCORTISONE SOD SUCC 100 MG/2ML INJ VIAL IV SCH ×5 (06:00→23:47)
--- NOTE | 2020-09-29 07:20 | NUR ---
DR. FRANKS Provider/Hospitalist at bedside. GAVE UPDATE ON PT.
[2020-09-29] MEDS: PANTOPRAZOLE 40 MG/10 ML VIAL INJ IV SCH (09:37)
[2020-09-29] MEDS: INSULIN LANTUS (GLARGINE) 1 /0.01ml (100units/ml) SC SCH (09:39)
--- NOTE | 2020-09-29 09:40 | NUR ---
PLATELET COUNT 42 THIS AM. HELD LOVENOX DAILY SCHEDULED DOSE. PT. HAS SM. AMOUNT OF BLEEDING WHEN SUCTIONING ORALLY.
[2020-09-29] MEDS ORDERED: CALCIUM GLUC 4.65meq/50ml D5AE 50 ML IV ONE (09:45)
[2020-09-29] MEDS ORDERED: POTASSIUM PHOSPHATE 44 MEQ in D5W 5% 250 ML IV ONE (09:45)
[2020-09-29] MEDS: ENOXAPARIN SOD 30 MG/0.3 ML SYRINGE SC SCH (10:00)
--- NOTE | 2020-09-29 10:18 | NUR ---
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 PT TRANSPORTED TO AND FROM CT ON TRANSPORT VENT AC 18, 500, +8, 40%. 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 ALARMS SET AND AUDIBLE. PT RETURNED TO VENT #V20 WITHOUT INCIDENT. TRANSPORT COMPLETED AT 1039 WITHOUT ISSUES.
--- NOTE | 2020-09-29 10:20 | NUR ---
PT. TAKEN VIA BED ON SSDS MK 2 ADVANCED OPERATOR WITH ERNESTO TAYLOR, ON PORTABLE VENT WITH RT TO RADIOLOGY FOR CT CHEST WITHOUT CONTRAST.
--- NOTE | 2020-09-29 10:40 | NUR ---
PT. RETURNED FROM CT, ATTACHED TO STERILE INSTRUMENT TECHNICIAN, RT PLACED PT. BACK ON VENT. REPOSITIONED TO RT. SIDE. TOLERATED WELL.
[2020-09-29] MEDS: VASOPRESSIN 50 UNITS in D5W 5% 247.5 ML IV SCH ×2 (11:00→21:15)
[2020-09-29] MEDS: PHENYLEPHRINE INJ 40 MG in SODIUM CHL 0.9% 250 ML IV SCH ×2 (11:00→19:30)
[2020-09-29] MEDS: MEROPENEM 500MG IVPB 50 ML IV SCH ×2 (11:48→22:10)
--- NOTE | 2020-09-29 12:10 | NUR ---
DR. Remberto MONTES Provider/Hospitalist at bedside. GAVE UPDATE ON PT.
--- NOTE | 2020-09-29 12:12 | NUR ---
DR. HUTCHINSON Provider/Hospitalist at bedside. GAVE UPDATE ON PT. NEW ORDERS RECEIVED PREVIOUSLY.
[2020-09-29 13:38] LABS: Protein, Urine 26.7 mg/dL (0.0-11.9)
--- NOTE | 2020-09-29 14:11 | NUR ---
assessment Patient is a 75 year old male who is on a vent in ICU. Per patients daughter Leobardo prior to admission patient lived home alone and was independent. Per Leobardo patients friend was worried when he didn't answer the phone. Patients brother went to patients home and went in and found patient down. 911 was called patient was admitted and put on a vent. Per Leobardo she doesn't know patients income or PCP information. Per Leobardo she is the one to make decisions for patient. I informed Leobardo patients post discharge needs to be determined after extubation and prior to discharge. I will continue to monitor and follow up as appropriate for any post discharge needs. Leobardo verbalized understanding. Addendum: 09/29/20 at 1422 by Mary Kay MARTE Amended: Links added.
[2020-09-29] MEDS: fentaNYL Drip 2500mCg/250mlNS 250 ML IV SCH (14:15)
[2020-09-29] MEDS: MIDAZOLAM DRIP 50 mg/50mL 50 ML IV SCH (15:00)
--- NOTE | 2020-09-29 15:00 | NUR ---
PT. IS CURRENTLY ON LEVOPHED GTT. AT 5 MCG. SBP 90'S-100'S. MONITORING BP.
[2020-09-29] MEDS: AZITHROMYCIN 500MG/ 250ML 250 ML IV SCH (16:11)
--- NOTE | 2020-09-29 19:15 | NUR ---
Report received from Jeanette. Patient intubated. ETT 7.0 CM at 22 CM L/L to vent. Vent settings: AC 18 Vt 500 FiO2 40% PEEP 8. IVF: Levophed drip at 10 mcg/min; and, Neosynephrine drip at 40 mcg/min. Will continue to monitor VS, focus on BP, and clinical status. Addendum: 09/29/20 at 2005 by Casimiro Sam RN Will continue with POC; and, will continue to monitor RASS -3.
--- NOTE | 2020-09-29 20:07 | NUR ---
RT decrease ventilator FiO2 to 35%.
--- NOTE | 2020-09-29 20:15 | NUR ---
Accucheck 136 mg/dl. Patient covered with Regular Insulin 2 units SQ.
--- NOTE | 2020-09-29 20:36 | NUR ---
Dr. Remberto English paged regarding Daily Plt count decreasing. As of today, PLT count 42.
--- NOTE | 2020-09-29 20:48 | NUR ---
Dr. English return call to report writer. updated on daily PLT count decreasing and PLT as of today 42. states to call Dr. Carvajal.
--- NOTE | 2020-09-29 20:50 | NUR ---
Dr. Carvajal and voicemail message left. Addendum: 09/29/20 at 2054 by Casimiro Sam RN CORRECTION: Dr. Carvajal's exchange called.
--- NOTE | 2020-09-29 21:52 | NUR ---
Dr. Carvajal return call. updated with decreasing PLT count. states he will see the patient in the morning.
--- NOTE | 2020-09-29 22:10 | NUR ---
Patient medicated with Merrem 500 mg IVPB.
--- NOTE | 2020-09-29 22:50 | NUR ---
Dr. Anthony rounded on patient. MD order and decrease PEEP to 5. MD wants to CPAP patient in am and asks if any other MD has other plans that will prevent CPAP trials in am.
--- NOTE | 2020-09-29 23:47 | NUR ---
Patient medicated with Solucortef 50mg IVP.
--- NOTE | 2020-09-29 23:55 | NUR ---
Accucheck 87 mg/dl. No coverage indicated.
[2020-09-30] VITALS (93 sets, daily range): BP systolic 95–150; BP diastolic 43–87
[2020-09-30] MEDS: IPRATROPIUM BROM 0.5 MG/2.5ML INH SOL NEB SCH ×5 (00:22→23:53)
[2020-09-30] MEDS: ALBUTEROL SULF 2.5 MG/0.5ML(0.5%) NEB SOLN NEB SCH ×5 (00:22→23:53)
--- NOTE | 2020-09-30 00:29 | NUR ---
BP 121/62. Levophed drip Double Strength decrease to 4 mcg/min.
[2020-09-30] MEDS: LINEZOLID 600MG/300ML 300 ML IV SCH (02:00)
--- NOTE | 2020-09-30 02:00 | NUR ---
BP 118/58. Levophed drip Double Strength decrease to 2.997 mcg/min.
--- NOTE | 2020-09-30 02:00 | NUR ---
Patient medicated with Zyvox 600 mg IV
--- NOTE | 2020-09-30 03:22 | NUR ---
Systems Analyst on unit. Rock Drill Operator collected am labs from [facility]. Specimens given to Systems Analyst and then sent to lab.
[2020-09-30] MEDS: fentaNYL Drip 2500mCg/250mlNS 250 ML IV SCH (03:33)
--- NOTE | 2020-09-30 03:34 | NUR ---
Fentanyl drip changed to new bag.
[2020-09-30] MEDS: ACCU-CHEK COMFORT CURVE STRIP VI SCH ×6 (04:00→23:42)
[2020-09-30] MEDS: InsuLIN REG 1unit/0.01ml Soln (100units/ml) SC SCH ×6 (04:00→23:57)
[2020-09-30 04:13] LABS: Mean Corpuscular Volume 91.4 fL (80.0-100.0); Red Cell Distribution Width 14.6 % (11.8-14.3)
[2020-09-30 04:16] LABS: Hematocrit 29.3 % (41.0-53.0); Hemoglobin 10.1 g/dL (13.5-17.5); Mean Corpuscular Hemoglobin 31.6 pg (28.0-32.0); Mean Corpuscular Hgb Conc. 34.5 g/dL (32.0-36.0); Platelet Count (auto) 40 10^3/uL (140-450); Red Blood Cells 3.21 10^6/uL (4.5-5.90)
[2020-09-30 04:31] LABS: Basophils % (manual) 0 (0.0-2.0); Blast Cells 0; Eosinophils % (manual) 0 (0-7); INR 1.05 (0.9-1.15); Metamyelocytes % 0; Myelocytes % 0; Partial Thromboplastin Time 31.3 sec (23.0-31.2); Promyelocytes % 0; Reactive Lymphocytes 0
[2020-09-30 04:38] LABS: Potassium 3.6 mmol/L (3.5-5.1)
[2020-09-30 04:51] LABS: Albumin 1.5 g/dL (3.4-5.0); BUN/Creatinine Ratio 34.8; Bilirubin, Direct 0.3 mg/dL (0-0.2); Bilirubin, Total 0.7 mg/dL (0.2-1.0); Magnesium 2.4 mg/dL (1.6-2.6); Phosphorus 5.2 mg/dL (2.5-4.90); Total Protein 4.3 g/dL (6.4-8.2)
--- NOTE | 2020-09-30 05:45 | NUR ---
BP 119/56. Levophed drip Double Strength decrease to 1.997 mcg/min.
[2020-09-30 05:47] LABS: Band Neutrophils % (manual) 7; Lymphocytes % (manual) 10 (10.0-50.0); Monocytes % (manual) 3 (0-12)
[2020-09-30] MEDS: HYDROCORTISONE SOD SUCC 100 MG/2ML INJ VIAL IV SCH ×4 (06:04→23:40)
--- NOTE | 2020-09-30 06:04 | NUR ---
Patient medicated with Solucortef 50mg IVP.
[2020-09-30] MEDS: INSULIN LANTUS (GLARGINE) 1 /0.01ml (100units/ml) SC SCH (08:30)
[2020-09-30] MEDS: D5W 5% 1,000 ML IV SCH (09:45)
[2020-09-30] MEDS: PANTOPRAZOLE 40 MG/10 ML VIAL INJ IV SCH (10:00)
[2020-09-30] MEDS: MEROPENEM 500MG IVPB 50 ML IV SCH ×2 (10:00→21:48)
--- NOTE | 2020-09-30 10:08 | NUR ---
advanced ett. ett now secured at 24 cm at the lip.
[2020-09-30] MEDS: PHENYLEPHRINE INJ 40 MG in SODIUM CHL 0.9% 250 ML IV SCH (12:10)
--- NOTE | 2020-09-30 12:50 | NUR ---
Nutrition Followup Note Wt 89.2kg Pt is still intubated and sedated in ICU. Pt is NPO with no diet order and with no alternate nutrition ordered. Consider starting pt on TF as medically feasible and per MD approval. If TF is recommended consider Glucerna 1.2 at a goal rate of 70ml/hr Est energy needs BW 86 [id number] kcal (23-25 kcal/kg BW), Est protein needs: 68-86 g (0.8-1.0g/kg BW r/t elev RFT severe hypoalb) Will reassess prn. Labs: BUN 85H, Creat 2.44H, Alb 1.5L, Ca 6.0L, Na 150H BM: Pt with no BM per Rn note Skin: BS 12 high risk,full details in home care aide note PES: Altered nutrition related lab values r.t current chronic medical condition aeb elev RFT hypocalcemia, severe hypoalb hyperglycemia Impaired swallowing r.t current medical condition aeb pt`s intubated sedated with order of NPO Comments 1) advance diet as medically feasible 2) consider EN support with Glucerna 1.2 @ 70 ml/hr per MD approval 3) refer to CDE on DC 4) consider prostat 1 packet bid as RFT improve 6) continue current plan of care Expected Outcomes/Goals: pt will have improved labs pt will get > 75% of needs F/u high 2-3 days
[2020-09-30] MEDS: NOREPINEPHRINE BITARTRATE 16 MG in SODIUM CHL 0.9% 250 ML IV SCH (13:58)
[2020-09-30] MEDS: MIDAZOLAM DRIP 50 mg/50mL 50 ML IV SCH (15:00)
--- NOTE | 2020-09-30 15:20 | NUR ---
FAMILY PHONE CALL Spoke with patient's daughter, updated provided, all questions addressed.
--- NOTE | 2020-09-30 18:00 | NUR ---
SEDATION: Sedation titrated off, patient does not follow commands at this time, does not open eyes to verbal stimulus.
[2020-09-30] MEDS: VASOPRESSIN 50 UNITS in D5W 5% 247.5 ML IV SCH (21:15)
--- NOTE | 2020-09-30 22:19 | NUR ---
Dr. Anthony at bedside, updated on pt's status, no new orders made
[2020-10-01] VITALS (87 sets, daily range): BP systolic 129–168; BP diastolic 56–83
--- NOTE | 2020-10-01 00:45 | NUR ---
Patient bathe/linen change Patient given complete bath. Skin integrity assessed for any changes. Complete linens and gown changed, optifoams in the sacrum and right wrist changed. Patient repositioned for comfort.
--- NOTE | 2020-10-01 00:52 | NUR ---
Status update Opens eyes spontaneously when turned to sides but unable to follow commands. Will continue to monitor neuro status for possible CPAP
[2020-10-01] MEDS: ACCU-CHEK COMFORT CURVE STRIP VI SCH ×4 (03:45→18:16)
[2020-10-01] MEDS: InsuLIN REG 1unit/0.01ml Soln (100units/ml) SC SCH ×4 (03:46→18:36)
[2020-10-01 04:28] LABS: Potassium 3.5 mmol/L (3.5-5.1)
[2020-10-01 04:41] LABS: Basophils # (auto) 0 10 ^3/uL (0-0.2); Basophils % (auto) 0.2 % (0.0-2.0); Eosinophils # (auto) 0 10 ^3/uL (0-0.8); Hematocrit 33.2 % (41.0-53.0); Hemoglobin 11.2 g/dL (13.5-17.5); Lymphocytes # (auto) 0.4 10 ^3/uL (0.4-5.4); Lymphocytes % (auto) 3.7 % (10.0-50.0); Mean Corpuscular Hemoglobin 30.7 pg (28.0-32.0); Mean Corpuscular Hgb Conc. 33.6 g/dL (32.0-36.0); Mean Corpuscular Volume 91.2 fL (80.0-100.0); Monocytes # (auto) 0.5 10 ^3/uL (0-1.3); Monocytes % (auto) 4.1 % (0.0-12.0); Neutrophils # (auto) 10.6 10 ^3/uL (1.6-8.6); Nucleated Red Blood Cells % 0.1 %; Platelet Count (auto) 40 10^3/uL (140-450); Red Blood Cells 3.63 10^6/uL (4.5-5.90); Red Cell Distribution Width 14.6 % (11.8-14.3); White Blood Cell 11.5 10^3/uL (4.4-10.8)
[2020-10-01 04:43] LABS: Albumin 1.5 g/dL (3.4-5.0); BUN/Creatinine Ratio 39.1; Bilirubin, Total 0.9 mg/dL (0.2-1.0); Calcium 6.1 mg/dL (8.5-10.1); Magnesium 2.7 mg/dL (1.6-2.6); Phosphorus 4.1 mg/dL (2.5-4.90); Total Protein 4.5 g/dL (6.4-8.2)
[2020-10-01] MEDS: PHENYLEPHRINE INJ 40 MG in SODIUM CHL 0.9% 250 ML IV SCH ×2 (04:50→21:30)
[2020-10-01] MEDS: ALBUTEROL SULF 2.5 MG/0.5ML(0.5%) NEB SOLN NEB SCH ×4 (06:07→23:58)
[2020-10-01] MEDS: IPRATROPIUM BROM 0.5 MG/2.5ML INH SOL NEB SCH ×4 (06:07→23:58)
--- NOTE | 2020-10-01 06:07 | NUR ---
Status update Opens eyes spontaneously and able to move left arm, still unable to follow verbal command, remains asleep most of the time
[2020-10-01] MEDS: D5W 5% 1,000 ML IV SCH ×4 (06:41→21:26)
[2020-10-01] MEDS: HYDROCORTISONE SOD SUCC 100 MG/2ML INJ VIAL IV SCH ×4 (06:42→23:57)
--- NOTE | 2020-10-01 08:00 | NUR ---
Opening Shift Note Assumed care of patient, [facility], no sedation . No S/S of distress/SOB or pain. NGT to LIS draining yellow brown. See interventions for complete assessment. Bed locked on low position, side rails up x2, bed alarms on at all times, will continue to monitor for changes Q1hr and PRN.
[2020-10-01] MEDS ORDERED: CALCIUM GLUC 4.65meq/50ml D5AE 50 ML IV ONE (09:30)
--- NOTE | 2020-10-01 09:30 | NUR ---
Dr Jha at bedside, updated on patient's status. Patient seen and examined. Will carry out new orders.
--- NOTE | 2020-10-01 09:55 | NUR ---
Spoke to Dr Anthony over the phone, updated on patient's status. No further orders at this time.
--- NOTE | 2020-10-01 10:00 | NUR ---
Meropenem 500mg sent back to Pharmacy c/o Herlinda.
[2020-10-01] MEDS: POTASSIUM EFFERVESENT TAB 25 MEQ GT SCH (10:10)
[2020-10-01] MEDS: MEROPENEM 1GM IVPB 100 ML IV SCH ×2 (10:11→22:08)
[2020-10-01] MEDS: PANTOPRAZOLE 40 MG/10 ML VIAL INJ IV SCH (10:11)
[2020-10-01] MEDS: acetaZOLAMIDE SODIUM 500 MG VL IV SCH ×2 (10:38→22:08)
[2020-10-01] MEDS: INSULIN LANTUS (GLARGINE) 1 /0.01ml (100units/ml) SC SCH (10:47)
--- NOTE | 2020-10-01 12:55 | NUR ---
Spoke to Dr Jha over the phone, informed of patient's SBP 160's to 170's. Orders received, read back and verified. Will carry out.
--- NOTE | 2020-10-01 13:30 | NUR ---
Patient had large amount of pasty dark stool, given perineal care bath. Skin integrity assessed for any changes. Linens changed. Patient repositioned for comfort.
[2020-10-01] MEDS: MIDAZOLAM DRIP 50 mg/50mL 50 ML IV SCH (15:00)
[2020-10-01] MEDS: fentaNYL Drip 2500mCg/250mlNS 250 ML IV SCH (15:00)
--- NOTE | 2020-10-01 15:26 | NUR ---
Received call from patient's daughter Maya who's able to provide password. Updated on patient's status and POC, verbalized understanding. All questions and concerns addressed.
[2020-10-01] MEDS: NOREPINEPHRINE BITARTRATE 16 MG in SODIUM CHL 0.9% 250 ML IV SCH (15:30)
--- NOTE | 2020-10-01 15:30 | NUR ---
Received call from patient's sister Nora who's able to provide password. Updated on patient's status and POC, verbalized understanding. All questions and concerns addressed.
--- NOTE | 2020-10-01 19:57 | NUR ---
ADMITTED ON 09/24/20. TODAY IS THE DAY. POST CODE BLUE IN AMBULANCE COMING HERE. ROSC. INTUBATED IN OUR ER. COFFEE GROUND EMESIS. PLACED ON LEVOPHED. BROUGHT HERE. PRIMARY MD IS DR FAGAN. DR OLVERA CONSULTED FOR RENZO. DR BROWNE CONSULTED FOR PULMONARY. DR SARMIENTO CONSULTED FOR PANCYTOPENIA. PLATELET COUNT IS NOW 40. DR FRANKS BROUGHT IN FOR THE COFFEE GROUND EMESIS ON ADMISSION. DR GALVAN ON BOARD WELL. PLAN IS TO DO CPAP WHEN HE IS AWAKE. ON NO SEDATION SINCE 6PM YESTERDAY. LEFT NARE NGT TO LIS DRAINING A BROWN LIQUID. LIJ TLC WITH D5W AT 150CC/HR. HIT SENT OUT AND IS STILL PENDING RESULTS. NA 151. CALCIUM HAS BEEN RUNNING LOW. CA GLUCONATE GIVEN TODAY.LIVER ENZYMES ELEVATED.
--- NOTE | 2020-10-01 20:15 | NUR ---
SUCTIONED A LARGE AMOUNT OF THICK YELLOW SECRETIONS WITH A SLIGHT BLOOD TINGE. ORAL CARE DONE. SCABS ON LIPS. MOISTURIZER APPLIED. SINUS TACHYCARDIA 104. HAS A DTI ON HIS RIGHT EAR. BILATERAL DTI ON SACRUM WITH SURROUNDING BLISTERS. LARGE SCROTUM IS OOZING SEROUS FLUID. CAN LIGHTLY MOVES ARMS AND LEGS. TRIES TO OPEN EYES. RESISTS ORAL CARE. TOLERATED ETT SUCTIONING WELL. LOW GRADE TEMP OF 99.2. LOW PLATELET 40. LISA DRAINING A GOOD AMOUNT OF CLEAR YELLOW LIQUID TO DOWN DRAIN BAG. ALL PULSES PALPABLE. PITTING EDEMA IN FEET. SCDS ON. REPOSITIONED TO RIGHT SIDE.
[2020-10-01] MEDS: VASOPRESSIN 50 UNITS in D5W 5% 247.5 ML IV SCH (21:15)
--- NOTE | 2020-10-01 22:00 | NUR ---
REPOSITIONED. SUCTIONED ETT. ORAL CARE DONE. SCABS REMAIN ON LIPS. MOISTURIZER APPLIED. CHG BATH AND COMPLETE LINEN CHANGE. NGT TO LIS WITH MINIMAL RED/BROWN DRNG.
[2020-10-02] VITALS (96 sets, daily range): BP systolic 96–165; BP diastolic 44–76
--- NOTE | 2020-10-02 | NUR ---
LAVAGED AND SUCTIONED THE ETT FOR A LARGE AMOUNT OF CREAMY SECRETIONS. ORAL CARE DONE. ABDOMEN ROUND AND SOFT. LISA DRAINING CLEAR YELLOW LIQUID. NSR WITHOUT ECTOPY.
--- NOTE | 2020-10-02 02:00 | NUR ---
REPOSITIONED. ORAL CARE. MOISTURIZER TO LIPS
--- NOTE | 2020-10-02 04:00 | NUR ---
REPOSITIONED. LUNGS COARSE. SUCTIONED ETT FOR A MODERATE AMOUNT OF WHITE SECRETIONS. WAKES UP AND MOVES HIS EXTREMITIES.. NEVER COMPLETELY OPENS HIS EYES AND LOOKS A ME. ALWAYS BREATHES 30.
[2020-10-02 04:35] LABS: Albumin 1.5 g/dL (3.4-5.0); Calcium 6.1 mg/dL (8.5-10.1)
[2020-10-02 04:39] LABS: BUN/Creatinine Ratio 40.8; Bilirubin, Total 0.9 mg/dL (0.2-1.0); Total Protein 4.5 g/dL (6.4-8.2)
[2020-10-02 04:47] LABS: Potassium 2.9 mmol/L (3.5-5.1)
--- NOTE | 2020-10-02 05:28 | NUR ---
POTASSIUM 2.9. REPORTED TO DR BRINK. ORDER RECEIVED FOR Ramón BRUMFIELD 40MEQ IV.
[2020-10-02] MEDS: POTASSIUM CHL 20MEQ/100ML 100 ML IV SCH (05:30)
[2020-10-02] MEDS ORDERED: POTASSIUM CHL 20MEQ/100ML 200 ML IV ONE (05:33)
[2020-10-02] MEDS: InsuLIN REG 1unit/0.01ml Soln (100units/ml) SC SCH ×4 (06:04→18:11)
[2020-10-02] MEDS: ALBUTEROL SULF 2.5 MG/0.5ML(0.5%) NEB SOLN NEB SCH ×3 (06:15→18:05)
[2020-10-02] MEDS: IPRATROPIUM BROM 0.5 MG/2.5ML INH SOL NEB SCH ×3 (06:16→18:05)
[2020-10-02] MEDS: ACCU-CHEK COMFORT CURVE STRIP VI SCH ×4 (06:25→17:40)
[2020-10-02] MEDS: HYDROCORTISONE SOD SUCC 100 MG/2ML INJ VIAL IV SCH ×3 (06:25→17:40)
--- NOTE | 2020-10-02 06:57 | NUR ---
CXR DONE FOR ETT PLACEMENT.
--- NOTE | 2020-10-02 07:00 | NUR ---
Dr Reyes at bedside, updated on patient's status. Informed of patient's large, pasty dark stool yesterday, orders received for CBC, read back and verified. Will carry out.
--- NOTE | 2020-10-02 07:06 | NUR ---
SCROTUM WASHED WITH WOUND CLEANSER EARLIER. PLACED WASH CLOTHS TO SEE IF IT WOULD HELP DRY IT UP . IT DID. NEW WASH CLOTHS APPLIED.
[2020-10-02 07:26] LABS: Eosinophils # (auto) 0 10 ^3/uL (0-0.8); White Blood Cell 13.3 10^3/uL (4.4-10.8)
[2020-10-02 07:28] LABS: Basophils # (auto) 0.1 10 ^3/uL (0-0.2); Basophils % (auto) 0.5 % (0.0-2.0); Hematocrit 32.6 % (41.0-53.0); Hemoglobin 10.8 g/dL (13.5-17.5); Lymphocytes # (auto) 0.5 10 ^3/uL (0.4-5.4); Mean Corpuscular Hemoglobin 30.9 pg (28.0-32.0); Mean Corpuscular Hgb Conc. 33.2 g/dL (32.0-36.0); Monocytes # (auto) 0.6 10 ^3/uL (0-1.3); Monocytes % (auto) 4.9 % (0.0-12.0); Neutrophils % (auto) 90.6 % (37.0-80.0); Platelet Count (auto) 42 10^3/uL (140-450); Red Blood Cells 3.51 10^6/uL (4.5-5.90); Red Cell Distribution Width 14.8 % (11.8-14.3)
--- NOTE | 2020-10-02 07:30 | NUR ---
Opening Shift Note Assumed care of patient, ET to mech vent, no sedation. No S/S of pain. See interventions for complete assessment. LT NGT to LIS draining dark nancy. See interventions for complete assessment. Bed locked on low position, side rails up x2, bed alarms on at all times, will continue to monitor for changes Q1hr and PRN.
--- NOTE | 2020-10-02 08:10 | NUR ---
Dr Jha at bedside, updated on patient's status. Patient seen and examined. Will carry out new orders.
--- NOTE | 2020-10-02 08:14 | NUR ---
Dr Rosa at bedside, updated on patient's status. Patient seen and examined. Will carry out new orders.
[2020-10-02] MEDS: D5W 5% 1,000 ML IV SCH ×2 (09:31→15:10)
[2020-10-02] MEDS: MEROPENEM 1GM IVPB 100 ML IV SCH ×2 (09:32→21:58)
[2020-10-02] MEDS: POTASSIUM EFFERVESENT TAB 25 MEQ GT SCH (09:32)
[2020-10-02] MEDS: PANTOPRAZOLE 40 MG/10 ML VIAL INJ IV SCH (09:32)
--- NOTE | 2020-10-02 09:35 | NUR ---
Received a call from Yenn[place] [facility] [phone] and gave up date on the patient's condition, ask me to fax the last two days of notes which was done.
[2020-10-02] MEDS: acetaZOLAMIDE SODIUM 500 MG VL IV SCH ×2 (09:36→21:55)
[2020-10-02] MEDS: INSULIN LANTUS (GLARGINE) 1 /0.01ml (100units/ml) SC SCH (10:17)
--- NOTE | 2020-10-02 10:30 | NUR ---
Patient had moderate amount of pasty, dark stool . Given perineal care. Linens change. Skin integrity assessed for any changes. Sacral wound photograph taken for reference. Patient repositioned for comfort.
--- NOTE | 2020-10-02 11:00 | NUR ---
Patient's RR high 20's to high 30's, breathing using abdominal muscles. Will inform MD.
--- NOTE | 2020-10-02 11:03 | NUR ---
Spoke to Dr Anthony over the phone, updated on patient's status. Received order for Precedex drip, read back and verified. Will carry out.
--- NOTE | 2020-10-02 11:45 | NUR ---
Nutrition Followup Note Wt 87.3 kg Pt is still intubated and sedated in ICU. Pt is NPO with no diet order and with no alternate nutrition ordered as per RN pt with high gastric drainage. Est energy needs BW 86 [id number] kcal (23-25 kcal/kg BW), Est protein needs: 68-86 g (0.8-1.0g/kg BW r/t elev RFT severe hypoalb) Will reassess prn. Labs: ALB 1.5 L, CA 6.1 L GLU 238 H BUN 84 H CREAT 2.06 H BM: Pt with no BM per Rn note Skin: BS 9 high risk,full details in care program director note PES: Altered nutrition related lab values r.t current chronic medical condition aeb elev RFT hypocalcemia, severe hypoalb hyperglycemia Impaired swallowing r.t current medical condition aeb pt`s intubated sedated with order of NPO Comments: Will continue to monitor NPO status, skin status. F/u high 2-3 days Rec: 1) advance diet as medically feasible 2) consider EN support with Glucerna 1.2 @ 70 ml/hr per MD approval 3) refer to CDE on DC 4) consider PN support if GI is not accessible 6) continue current plan of care
[2020-10-02] MEDS: PHENYLEPHRINE INJ 40 MG in SODIUM CHL 0.9% 250 ML IV SCH (13:48)
--- NOTE | 2020-10-02 14:01 | NUR ---
Received call from patient's daughter Maya who's able to provide password. Updated on patient's status and POC, verbalized understanding. All questions and concerns addressed.
[2020-10-02] MEDS ORDERED: CALCIUM GLUC 4.65meq/50ml D5AE 50 ML IV ONE (14:15)
--- NOTE | 2020-10-02 14:15 | NUR ---
Patient out of room to Head CT.
--- NOTE | 2020-10-02 14:30 | NUR ---
Patient back to room from CT.
--- NOTE | 2020-10-02 14:36 | NUR ---
Dr Zarate at bedside, updated on patient's status. Patient seen and examined. Will carry out new orders.
[2020-10-02] MEDS: fentaNYL Drip 2500mCg/250mlNS 250 ML IV SCH ×2 (14:46→17:13)
[2020-10-02] MEDS: MIDAZOLAM DRIP 50 mg/50mL 50 ML IV SCH (14:46)
[2020-10-02] MEDS: NOREPINEPHRINE BITARTRATE 16 MG in SODIUM CHL 0.9% 250 ML IV SCH (15:30)
--- NOTE | 2020-10-02 17:00 | NUR ---
Dr Anthony at bedside, updated on patient's status. Patient seen and examined. Received order to re-start patient on Fentanyl drip. Will carry out.
--- NOTE | 2020-10-02 20:00 | NUR ---
ADMITTED ON 09/24/20. TODAY IS THE 15 DAY. POST CODE BLUE IN AMBULANCE COMING HERE. ROSC. INTUBATED IN OUR ER. COFFEE GROUND EMESIS. PLACED ON LEVOPHED. BROUGHT HERE. PRIMARY MD IS DR FAGAN. DR OLVERA CONSULTED FOR RENZO. DR BROWNE CONSULTED FOR PULMONARY. DR SARMIENTO CONSULTED FOR PANCYTOPENIA. PLATELET COUNT IS NOW 40. DR FRANKS BROUGHT IN FOR THE COFFEE GROUND EMESIS ON ADMISSION. DR GALVAN ON BOARD WELL. PLAN IS TO DO CPAP WHEN HE IS AWAKE. SEDATION ADDED TODAY: PRECEDEX AND FENTANYL. LEFT NARE NGT TO LIS DRAINING A BILE COLOR LIQUID. LIJ TLC WITH D5W AT 150CC/HR. HIT SENT OUT AND IS STILL PENDING RESULTS. NA 149. CALCIUM HAS BEEN RUNNING LOW. CA GLUCONATE GIVEN TODAY.LIVER ENZYMES ELEVATED. HEAD CT RESULTED. EEG PENDING. POTASSIUM 2.9 . REPLACED WITH K RIDER 40 MEQ IV AND DAILY EFFERVESCENT POTASSIUM.
[2020-10-02] MEDS: VASOPRESSIN 50 UNITS in D5W 5% 247.5 ML IV SCH (21:15)
--- NOTE | 2020-10-02 22:00 | NUR ---
SUCTIONED ETT FOR A SMALL AMOUNT OF WHITE SECRETIONS. LAVAGED X 1. ORAL CARE DONE. DRIED BLOOD ON TONGUE. REPOSITIONED. NSR WITHOUT ECTOPY.
[2020-10-03] VITALS (81 sets, daily range): BP systolic 95–153; BP diastolic 46–74
--- NOTE | 2020-10-03 | NUR ---
FENTANYL OFF. HR 51. SINUS BRADYCARDIA. SBP STABLE. NO FEVER. INCREASED THE PRECEDEX. HR SLOWLY COMING UP. RR 26. DOUBLE STACKING OCCASIONALLY.
[2020-10-03] MEDS: IPRATROPIUM BROM 0.5 MG/2.5ML INH SOL NEB SCH ×5 (00:16→18:14)
[2020-10-03] MEDS: ALBUTEROL SULF 2.5 MG/0.5ML(0.5%) NEB SOLN NEB SCH ×5 (00:16→18:14)
[2020-10-03] MEDS: InsuLIN REG 1unit/0.01ml Soln (100units/ml) SC SCH ×4 (00:20→16:56)
[2020-10-03] MEDS: ACCU-CHEK COMFORT CURVE STRIP VI SCH ×4 (00:21→16:56)
[2020-10-03] MEDS: D5W 5% 1,000 ML IV SCH ×5 (00:51→21:30)
--- NOTE | 2020-10-03 02:00 | NUR ---
Condition remains unchanged. Tolerating vent settings well. Oral suctioning and oral and oral care provided. Will continue plan of care and provide safe environment for patient.
--- NOTE | 2020-10-03 03:40 | NUR ---
am labs sent
--- NOTE | 2020-10-03 04:00 | NUR ---
Bed bath/CHG bath provided with linen change. Oral care provided. Tolerating vent setting we. No distress noted.
[2020-10-03 04:16] LABS: Albumin 1.2 g/dL (3.4-5.0); Calcium 6.1 mg/dL (8.5-10.1)
[2020-10-03 04:19] LABS: Bilirubin, Total 0.6 mg/dL (0.2-1.0); Total Protein 3.7 g/dL (6.4-8.2)
[2020-10-03 04:35] LABS: Potassium 2.4 mmol/L (3.5-5.1)
--- NOTE | 2020-10-03 04:39 | NUR ---
POTASSIUM 2.4. RECEIVED AN ORDER FROM DR DUNNE FOR 80MEQ IV KCL RIDER.
[2020-10-03] MEDS: POTASSIUM CHL 20MEQ/100ML 100 ML IV SCH ×7 (04:49→18:36)
--- NOTE | 2020-10-03 06:00 | NUR ---
Blood glucose 248. Coverage provided per insulin sliding scale. No signs of hypoglycemia noted. All needs anticipated and met. Will continue plan of care and provide safe environment for patient.
[2020-10-03] MEDS: HYDROCORTISONE SOD SUCC 100 MG/2ML INJ VIAL IV SCH ×3 (06:09→23:07)
[2020-10-03] MEDS: PHENYLEPHRINE INJ 40 MG in SODIUM CHL 0.9% 250 ML IV SCH ×2 (06:50→23:30)
--- NOTE | 2020-10-03 07:30 | NUR ---
REPORT OBTAINED PATIENT REMAINS ON VENTILATOR, SEDATED ON PRECEDEX (SEE IV SPREADSHEET) WITH ACCESSORY MUSCLE USE NOTED. RR UNSYNCHONIZED WITH VENTILATOR RR 30-40 WITH BREATH STACKING. POX 92-93%. SEE R.T NOTE. PRECEDEX INCREASED PER PROTOCOL TO PROVIDE COMFORT. LUNGS SOUNDS COURSE THROUGHOUT WITH THICK MODERATE, BOYER, CREAMY, PINK TINGED SECRETIONS NOTED. SEE ASSESSMENT/ FURTHER NOTES.
--- NOTE | 2020-10-03 08:00 | NUR ---
Family updated on pt status Family of JUAN F CARMEN updated on patient's status and condition. All questions and concerns addressed. Sister verbalized understanding.
--- NOTE | 2020-10-03 08:00 | NUR ---
SEDATION RESTARTED PATIENTS NOTED TO HAVE INCREASE WORK OF BREATHING. RR 32-40 WITH ABD. MUSCLE USE. PATIENT OPENING EYES AND FOLLOWING COMMANDS BUT APPEARS RESTLESS. PRECEDEX AT MAXED DOSE. FENT AT LOW DOSE BUT PATIENT REMAINS RESTLESS. VERSED STARTED FOR COMFORT AND VENT SYNCHRONY.
[2020-10-03] MEDS ORDERED: CALCIUM GLUC 4.65meq/50ml D5AE 50 ML IV ONE (08:45)
[2020-10-03] MEDS ORDERED: POTASSIUM EFFERVESENT TAB 25 MEQ GT SCH ×3 (08:45→14:00)
[2020-10-03] MEDS: MIDAZOLAM DRIP 50 mg/50mL 50 ML IV SCH (08:56)
--- NOTE | 2020-10-03 10:00 | NUR ---
MD ROUNDS DR. LOPEZ AT BEDSIDE. MD UPDATED ON PATIENTS STATUS AND PATIENTS NOT TOLERATING VENTILATOR AND STARTED BACK ON SEDATION. MD AWARE SEE MD NOTES/ORDERS.
--- NOTE | 2020-10-03 10:35 | NUR ---
EXPERT MEDICAL WRITER AT BEDSIDE
[2020-10-03] MEDS: PANTOPRAZOLE 40 MG/10 ML VIAL INJ IV SCH (11:51)
[2020-10-03] MEDS: MEROPENEM 1GM IVPB 100 ML IV SCH ×2 (11:51→23:06)
[2020-10-03] MEDS: INSULIN LANTUS (GLARGINE) 1 /0.01ml (100units/ml) SC SCH (12:00)
--- NOTE | 2020-10-03 12:15 | NUR ---
WOUND CARE NOTE: Wound care in to see patient for reevaluation of wounds and skin integrity monitoring. Patient continue resting in ICU low air loss bed in Rm. 111. Patient is still intubated and mechanically ventilated. Patient appears to be in no pain using Kendrick Rodriguez Faces Pain Scale. His Adam score is 10. Skin/wound assessment done with the assistance of patient's nurse, ERNESTO Velazco. Patient's Rt lateral ear lobe continue to display two intact DTI measuring 1.5x0.7 and 1x0.8cm,no drainage/odor noted,left open to air. Patient's Rt and Lt sacrum continue to display multi open pressure injuries. Lt (0.8x0.5cm) and Rt (3x1cm) upper sacral pressure injuries are open partial thickness. Wounds are red with bright and dark red shanice wound. Rt distal sacrum down to Rt buttock large DTI (6x7cm) continue to darkened and open at wound edges. L sacral (7x1.2cm)down to L buttock pressure injury is dark red. Minimal serosanguineous drainage noted, no odor noted. Shanice care given,applied Z Guard cream and covered wounds with Opti foam gentle dressing. Patient's Rt upper back noted with 4x3cm open partial thickness skin tear. Wound is red with pink shanice wound, moderate serous drainage noted on old dressing, no odor noted. Cleansed skin tear with NS,patted dry with gauze, applied Thera honey gauze and covered with Opti foam gentle dressing. New photograph of wounds are taken for reference. Repositioned patient for comfort facing his Lt. side, redistributed pressure points with pillows. Patient tolerated well. ERNESTO Velazco at bedside. RECOMMENDATION: Q3D/PRN dressing change to Rt upper back skin tear per MD order,continuation of all other wound care orders MD prescribed,continue with skin/wound plan of care, continue monitoring by wound care while patient is hospitalized. Addendum: 10/03/20 at 1454 by Fannie Abellar RN Amended: Links added.
--- NOTE | 2020-10-03 14:00 | NUR ---
Profiler Hand at bedside Dr. Zarate updated on patients status. notified of 80meq kcl coverage iv ordered this a.m. stated patient to receive total of 150meq. BNP to be checked when coverage completed. PO coverage cancelled as patient is having gastric residual via NG.
[2020-10-03] MEDS: NOREPINEPHRINE BITARTRATE 16 MG in SODIUM CHL 0.9% 250 ML IV SCH (15:17)
--- NOTE | 2020-10-03 16:44 | NUR ---
Family updated on pt status Family of JUAN F CARMEN updated on patient's status and condition. All questions and concerns addressed. Daughter Leobardo and sister verbalized understanding.
--- NOTE | 2020-10-03 17:13 | NUR ---
Central Line Dressing Changes Central line dressing change done with a sterile technique. Cleansed with chloraprep scrub. Placed bio-patch as available. Occlusive dressing applied.
--- NOTE | 2020-10-03 17:30 | NUR ---
Cooling Measures applied. Patient currently has temp of 99.5 , cooling measures in place.
--- NOTE | 2020-10-03 18:30 | NUR ---
NEUROLOGIST DR. ELLIS AT BEDSIDE. SEE MD NOTES.
--- NOTE | 2020-10-03 19:10 | NUR ---
Report given Updated noc nurse on plan of care. Patient intubated/sedated, continues to have occasional stacking, VSS.
[2020-10-03] MEDS: VASOPRESSIN 50 UNITS in D5W 5% 247.5 ML IV SCH (21:15)
[2020-10-04] VITALS (102 sets, daily range): BP systolic 88–156; BP diastolic 44–83
[2020-10-04] MEDS: IPRATROPIUM BROM 0.5 MG/2.5ML INH SOL NEB SCH ×5 (00:06→23:56)
[2020-10-04] MEDS: ALBUTEROL SULF 2.5 MG/0.5ML(0.5%) NEB SOLN NEB SCH ×5 (00:06→23:56)
[2020-10-04] MEDS: ACCU-CHEK COMFORT CURVE STRIP VI SCH ×4 (00:10→18:01)
[2020-10-04] MEDS: InsuLIN REG 1unit/0.01ml Soln (100units/ml) SC SCH ×4 (00:11→18:10)
[2020-10-04 00:40] LABS: Calcium 6.3 mg/dL (8.5-10.1); Potassium 3.7 mmol/L (3.5-5.1)
--- NOTE | 2020-10-04 02:30 | NUR ---
PROVIDED PARTIAL BED BATH; T. HAD SMEAR BM, BROWN, STICKY; MARIE-CARE PROVIDED WITH PARTIAL LINEN CHANGE; PT. TOLERATED WELL.
[2020-10-04 05:38] LABS: Basophils # (auto) 0 10 ^3/uL (0-0.2); Basophils % (auto) 0.1 % (0.0-2.0); Eosinophils # (auto) 0 10 ^3/uL (0-0.8); Mean Corpuscular Volume 92.2 fL (80.0-100.0); Monocytes # (auto) 0.5 10 ^3/uL (0-1.3); Neutrophils % (auto) 91.7 % (37.0-80.0); Nucleated Red Blood Cells % 0.1 %
[2020-10-04 05:40] LABS: Hematocrit 28.8 % (41.0-53.0); Hemoglobin 9.7 g/dL (13.5-17.5); Lymphocytes # (auto) 0.5 10 ^3/uL (0.4-5.4); Lymphocytes % (auto) 4.1 % (10.0-50.0); Mean Corpuscular Hemoglobin 31.1 pg (28.0-32.0); Mean Corpuscular Hgb Conc. 33.8 g/dL (32.0-36.0); Monocytes % (auto) 4.1 % (0.0-12.0); Neutrophils # (auto) 10.2 10 ^3/uL (1.6-8.6); Platelet Count (auto) 42 10^3/uL (140-450); Red Blood Cells 3.12 10^6/uL (4.5-5.90); Red Cell Distribution Width 14.3 % (11.8-14.3); White Blood Cell 11.1 10^3/uL (4.4-10.8)
[2020-10-04 06:12] LABS: Potassium 3.4 mmol/L (3.5-5.1)
[2020-10-04 06:18] LABS: Albumin 1.3 g/dL (3.4-5.0); BUN/Creatinine Ratio 40.9; Calcium 6.3 mg/dL (8.5-10.1)
[2020-10-04 06:24] LABS: Bilirubin, Total 0.9 mg/dL (0.2-1.0)
[2020-10-04] MEDS: HYDROCORTISONE SOD SUCC 100 MG/2ML INJ VIAL IV SCH ×3 (06:57→22:13)
[2020-10-04] MEDS: D5W 5% 1,000 ML IV SCH ×4 (07:00→20:00)
[2020-10-04] MEDS: PANTOPRAZOLE 40 MG/10 ML VIAL INJ IV SCH (10:29)
[2020-10-04] MEDS: MEROPENEM 1GM IVPB 100 ML IV SCH ×2 (10:29→22:13)
[2020-10-04] MEDS ORDERED: POTASSIUM EFFERVESENT TAB 25 MEQ GT ONE (10:30)
--- NOTE | 2020-10-04 11:36 | NUR ---
Nutrition Followup Note Wt 87.6 kg Pt is still intubated and sedated in ICU. Pt is NPO with no diet order and with no alternate nutrition, consider nutrition recommendations per MD approval when medically feasible. Est energy needs BW 86 [id number] kcal (23-25 kcal/kg BW), Est protein needs: 68-86 g (0.8-1.0g/kg BW r/t elev RFT severe hypoalb) Will reassess prn. Labs: BUN 56H, Creat 1.37H, GLUc 197H, Alb 1.3L, Ca 6.3L BM: Pt with 2 BMs 10/03 per Rn note Skin: BS 10 high risk,full details in healthcare network consultant note PES: Altered nutrition related lab values r.t current chronic medical condition aeb elev RFT hypocalcemia, severe hypoalb hyperglycemia Impaired swallowing r.t current medical condition aeb pt`s intubated sedated with order of NPO Comments: Will continue to monitor NPO status, skin status. F/u high 2-3 days Rec: 1) advance diet as medically feasible 2) consider EN support with Glucerna 1.2 @ 70 ml/hr per MD approval 3) refer to CDE on DC 4) consider PN support if GI is not accessible 6) continue current plan of care
[2020-10-04] MEDS: DOPamine 1600MCG/ML D5W 250 ML IV SCH (12:10)
[2020-10-04] MEDS: INSULIN LANTUS (GLARGINE) 1 /0.01ml (100units/ml) SC SCH (12:37)
--- NOTE | 2020-10-04 14:10 | NUR ---
Respiratory note: INCREASED FIO2 TO 40%. ERNESTO TAYLOR MADE AWARE OF CHANGE.
[2020-10-04] MEDS: MIDAZOLAM DRIP 50 mg/50mL 50 ML IV SCH (15:00)
[2020-10-04] MEDS: NOREPINEPHRINE BITARTRATE 16 MG in SODIUM CHL 0.9% 250 ML IV SCH (15:30)
--- NOTE | 2020-10-04 15:32 | NUR ---
FAMILY UPDATE; Spoke with patient's daughter, informed her that at this time we are attempting to wean patient off of sedation to accurately assess neurological status. Informed daughter that at this time, patient does open eyes spontaneously but is not observed tracking and does not follow commands. Discussed with her plan to keep patient off of sedation as long as tolerated.
[2020-10-04] MEDS: PHENYLEPHRINE INJ 40 MG in SODIUM CHL 0.9% 250 ML IV SCH (16:10)
[2020-10-04] MEDS: fentaNYL Drip 2500mCg/250mlNS 250 ML IV SCH (17:45)
--- NOTE | 2020-10-04 20:03 | NUR ---
ADMITTED ON 09/24/20. TODAY IS THE DAY. POST CODE BLUE IN AMBULANCE COMING HERE. ROSC. INTUBATED IN OUR ER. COFFEE GROUND EMESIS. PLACED ON LEVOPHED. BROUGHT HERE. PRIMARY MD IS DR FAGAN. DR OLVERA CONSULTED FOR RENZO. DR BROWNE CONSULTED FOR PULMONARY. DR SARMIENTO CONSULTED FOR PANCYTOPENIA. PLATELET COUNT IS NOW 40. DR FRANKS BROUGHT IN FOR THE COFFEE GROUND EMESIS ON ADMISSION. DR GALVAN ON BOARD WELL. PLAN IS TO DO CPAP WHEN HE IS AWAKE. SEDATION ADDED FENTANYL. LEFT NARE NGT TO LIS DRAINING A BILE COLOR LIQUID. LIJ TLC WITH D5W AT 150CC/HR. HIT SENT OUT AND IS STILL PENDING RESULTS. NA 145. CALCIUM HAS BEEN RUNNING LOW. LIVER ENZYMES ELEVATED. HEAD CT RESULTED. EEG RESULTED. POTASSIUM 3.4 . REPLACED WITH EFFERVESCENT KCL. NO FEVERS NSR WITHOUT ECTOPY. ANTIBIOTIC: MERREM. ON SOLUCORTEF. SACRAL WOUND COVERED WITH FOAM DRESSINGS. ON LANTUS. Q 6 HOUR ACCUCHECKS. SCROTUM IS WEEPING AGAIN.
--- NOTE | 2020-10-04 20:15 | NUR ---
REPOSITIONED TO RIGHT USING THE BED. NSR WITHOUT ECTOPY. DOUBLE STACKS HIS BREATHS WHEN YOU'RE WORKING WITH HIM. THEN HE CALMS DOWN. JOE. ORAL CARE: WATERY BLOODY SECRETIONS. LUNGS COARSE. SUCTIONED WATERY BLOODY SECRETIONS FROM THE ETT. ABDOMEN SOFT. FLUSHED THE NGT WITH 30CC OF WATER. BILE COLOR LIQUID IN TUBING. OGT TO LIS. NOTHING IN CANNISTER. GENERALIZED 2+ PITTING EDEMA IN ARMS AND LEGS. SCDS ON. ENLARGED SCROTUM OOZING SEROUS FLUID ONTO A PILLOWCASE CRADLE. CRADLE REMOVED AND CLEANSED THE ENTIRE SCROTUM WITH WOUND SPRAY AND DRIED. WASH CLOTHS IN BETWEEN ENLARGED SCROTUM AND SKIN ON LEGS. RECTAL TEMP PROBE IN. LIJ TLC SITE SHOWS NO REDNESS OR SWELLING. INFUSING SEDATION: FENTANYL. DOPAMINE AT 2. 5 MCG/KG/MIN FOR RENAL PERFUSION. THE D5W INFUSION WAS ORDERED TO BRING DOWN THE NA LEVEL. IT IS NOW 145. ORAL CARE: SEVERAL SCABBED AREAS ON LIPS. DRIED BLOOD ON TONGUE. MOISTURIZER APPLIED.
[2020-10-04] MEDS: VASOPRESSIN 50 UNITS in D5W 5% 247.5 ML IV SCH (21:15)
--- NOTE | 2020-10-04 22:00 | NUR ---
REPOSITIONED TO BACK .SUCTION ORAL CAVITY FOR WATERY RED DRNG. MOISTURIZER TO LIPS AND TONGUE. ABDOMEN ROUND, FIRMER THAN YESTERDAY ABDOMEN. NGT TO LIS. BILE COLOR LIQUID. LISA OUTPUT GOOD. CHANGED THE FENTANYL TUBING. MEDS GIVEN.
[2020-10-05] VITALS (76 sets, daily range): BP systolic 106–195; BP diastolic 52–82
--- NOTE | 2020-10-05 | NUR ---
NO CHANGE IN STATUS. TEMP IS 99.9. ICE BAG PLACED UNDER NECK AND IN BOTH AXILLAS. REPOSITIONED. SUCTIONED ETT FOR A SMALL AMOUNT OF WHITE SECRETIONS. PITTING EDEMA IN EXTREMITIES PERSISTS. LUNGS COARSE WITH A LITTLE EXPIRATORY WHEEZING IN THE RIGHT UPPER LOBE.
--- NOTE | 2020-10-05 02:00 | NUR ---
REPOSITIONED. ORAL CARE MOISTURIZER TO LIPS AND TONGUE. THERE IS AN AREA AT THE TIP OF HIS TONGUE WHERE THE TOP LAYER OF SKIN IS REMOVED. VERY GENTLE ORAL CARE. SUCTIONED AND LAVAGED THE ETT TO GET THE WHITE SECRETIONS. GOOD URINE OUTPUT. NGT IS PUTTING OUT BILE LIQUID. NSR WITHOUT ECTOPY
[2020-10-05] MEDS: D5W 5% 1,000 ML IV SCH (04:00)
--- NOTE | 2020-10-05 04:00 | NUR ---
CHG BATH. VERY STIFF EXTREMITIES. ROM DONE. 2-3+ PITTING EDEMA IN ALL EXTREMITIES. GOOD URINE OUTPUT. IV SITE SHOWS NO REDNESS OR SWELLING. RECTAL DRESSING DONE. CAKED ON Z GUARD REMOVED. SEVERAL AREAS ARE OPEN WITH THE SKIN PEELED OFF. SEROUS DRNG ON FOAM DRESSING. AREA CLEANED WITH WOUND SPRAY . NEW Z GUARD AND OPTIIFOAM APPLIED. NEW MAURICE
[2020-10-05 05:02] LABS: Albumin 1.5 g/dL (3.4-5.0); Calcium 6.8 mg/dL (8.5-10.1); Potassium 3.6 mmol/L (3.5-5.1)
[2020-10-05 05:05] LABS: BUN/Creatinine Ratio 40.2; Bilirubin, Total 0.8 mg/dL (0.2-1.0); Total Protein 4.7 g/dL (6.4-8.2)
[2020-10-05] MEDS: InsuLIN REG 1unit/0.01ml Soln (100units/ml) SC SCH ×4 (06:00→17:31)
[2020-10-05] MEDS: ALBUTEROL SULF 2.5 MG/0.5ML(0.5%) NEB SOLN NEB SCH ×3 (06:10→19:05)
[2020-10-05] MEDS: IPRATROPIUM BROM 0.5 MG/2.5ML INH SOL NEB SCH ×3 (06:10→19:05)
[2020-10-05] MEDS: fentaNYL Drip 2500mCg/250mlNS 250 ML IV SCH (06:15)
[2020-10-05] MEDS: HYDROCORTISONE SOD SUCC 100 MG/2ML INJ VIAL IV SCH ×3 (06:22→21:49)
[2020-10-05] MEDS: ACCU-CHEK COMFORT CURVE STRIP VI SCH ×4 (06:22→17:31)
[2020-10-05] MEDS: PHENYLEPHRINE INJ 40 MG in SODIUM CHL 0.9% 250 ML IV SCH (08:50)
[2020-10-05] MEDS: PANTOPRAZOLE 40 MG/10 ML VIAL INJ IV SCH (11:15)
[2020-10-05] MEDS: MEROPENEM 1GM IVPB 100 ML IV SCH ×2 (11:15→21:49)
--- NOTE | 2020-10-05 11:20 | NUR ---
AT BEDSIDE; Dr. Jha at bedside.
--- NOTE | 2020-10-05 12:25 | NUR ---
CPAP: Patient placed on CPAP trail by RT.
--- NOTE | 2020-10-05 12:25 | NUR ---
INITIATED CPAP TRIAL Pt wakes with stimulation, is alert and follows simple commands. Initiated CPAP trial as ordered, pt tolerating well. Obtained weaning parameters: NIF -25, VC 1089ml, RSBI 27, LEAK 326 ml. ABG to follow in one hour. RN aware of changes. Will continue to monitor.
[2020-10-05] MEDS: SOD CHL 0.45% WITH 20MEQ KCL 1,000 ML IV SCH ×2 (12:34→18:44)
[2020-10-05] MEDS: DOPamine 1600MCG/ML D5W 250 ML IV SCH (12:34)
[2020-10-05] MEDS: INSULIN LANTUS (GLARGINE) 1 /0.01ml (100units/ml) SC SCH (12:35)
--- NOTE | 2020-10-05 13:33 | NUR ---
PT REMAINS ON CPAP TOLERATING WELL. CALLED DR. STAFFORD AND LEFT MESSAGE TO REPORT ABG AND WEANING PARAMETERS. AWAITING CALL BACK. PT WITH NO S/S OF DISTRESS.
--- NOTE | 2020-10-05 14:12 | NUR ---
RECEIVED VERBAL ORDER FROM DR. STAFFORD TO EXTUBATE PT. ULTRASOUND CURRENTLY AT BEDSIDE, WILL CARRY OUT WHEN ULTRASOUND IS COMPLETED.
--- NOTE | 2020-10-05 14:56 | NUR ---
EXTUBATED EXTUBATED PT WITH RN AT BEDSIDE. PLACED ON COOL AEROSOL MASK FIO2 50%. HR 101, RR 22, SPO2 90-92%. INSP STRIDOR NOTED, NOTIFIED DR. STAFFORD. VERBAL ORDERS RECEIVED FOR RACEMIC EPINEPHRINE. ADMINISTERED MEDNEB TX, PERSISTENT MILD STRIDOR, COARSE CRACKLES. PT WITH WEAK COUGH. WILL CONT TO MONITOR.
[2020-10-05] MEDS: MIDAZOLAM DRIP 50 mg/50mL 50 ML IV SCH (15:00)
--- NOTE | 2020-10-05 15:00 | NUR ---
EXTUBATION: Patient extubated, placed on 50% cool mist mask. Patient with stridor, racemic epi treatment to be given by Jennifer ROBINS.
--- NOTE | 2020-10-05 15:00 | NUR ---
Cooling Measures applied. Patient currently has temp of 100.8 , cooling measures in place.
[2020-10-05] MEDS ORDERED: EPINEPHrine HCL 0.5 ML NEB NEB ONE (15:03)
--- NOTE | 2020-10-05 15:20 | NUR ---
BIPAP; Patient placed on Bipap for increased work of breathing. Setting 10/5, FiO2 100%.
--- NOTE | 2020-10-05 15:20 | NUR ---
PT WITH INCREASED WOB, RR MID-20'S POST-EXTUBATION. PLACED PT ON BIPAP, PLUGGED INTO RED OUTLET, FITTED WITH SIZE MEDIUM FACIAL MASK, WITH [id number] PLACED AROUND NOSE/MOUTH. ON SETTINGS: /, FIO2 80%. PT TOLERATING BIPAP WELL, RESPIRATIONS NOW UNLABORED. HR 100, RR 17, SPO2 95%. BREATH SOUNDS COARSE CRACKLES. RN AWARE OF CHANGES. WILL CONT TO MONITOR.
[2020-10-05] MEDS: NOREPINEPHRINE BITARTRATE 16 MG in SODIUM CHL 0.9% 250 ML IV SCH (15:30)
[2020-10-05] MEDS: HEPARIN SODIUM (PORCINE) 5000 UNITS/ML 1ML VIAL SC SCH ×2 (17:18→21:54)
--- NOTE | 2020-10-05 17:32 | NUR ---
COOLING MEASURES; Ice packs replenished, cool rag applied to forehead.
[2020-10-05] MEDS: VASOPRESSIN 50 UNITS in D5W 5% 247.5 ML IV SCH (21:15)
[2020-10-06] VITALS (73 sets, daily range): BP systolic 95–167; BP diastolic 45–72
[2020-10-06] MEDS: D5W/SOD CHL 0.45% 1,000 ML IV SCH ×2 (00:15→13:35)
[2020-10-06] MEDS: ACCU-CHEK COMFORT CURVE STRIP VI SCH ×4 (00:17→17:48)
[2020-10-06] MEDS: DEXTROSE (50%) 50ML SYRG IV PRN (00:19)
[2020-10-06] MEDS: IPRATROPIUM BROM 0.5 MG/2.5ML INH SOL NEB SCH ×4 (00:39→19:32)
[2020-10-06] MEDS: ALBUTEROL SULF 2.5 MG/0.5ML(0.5%) NEB SOLN NEB SCH ×4 (00:39→19:32)
--- NOTE | 2020-10-06 01:21 | NUR ---
MIDNIGHT BG 44-58, ONE AMP OF D50% ADMINISTERED, MD NOTIFIED D5%.45NS STARTED AT 75CC/HR. 30 MIN REPEAT BG WAS 155.PT ASYMPTOMATIC.
[2020-10-06] MEDS: PHENYLEPHRINE INJ 40 MG in SODIUM CHL 0.9% 250 ML IV SCH ×2 (01:30→18:10)
[2020-10-06 04:25] LABS: Calcium 6.7 mg/dL (8.5-10.1); Potassium 3.8 mmol/L (3.5-5.1)
[2020-10-06 04:31] LABS: Albumin 1.3 g/dL (3.4-5.0); BUN/Creatinine Ratio 42.4; Bilirubin, Total 1.4 mg/dL (0.2-1.0); Total Protein 4.3 g/dL (6.4-8.2)
--- NOTE | 2020-10-06 05:30 | NUR ---
PT HAS COARSE RHONCHIS BILATSUCTIONED ORALLY AND WITH RT NASOTRACHEALLY SATS 92% ON 4L NC, NOT IMPROVING. PLACED IN SEMISITTING POSITION, , BREATHING TX GIVEN, NOT HELPING, PLACED BACK ON BIPAP 09/01, 45 %. HYPERTENSIVE, GIVEN HYDRALAZINE IV. ACCUCHEC BG 187, COVERED PER PROTOCOL WITH 3 UNITS REG. INSULIN SC. PT IS AWAKE AND COOPERATIVE.
[2020-10-06] MEDS: HYDROCORTISONE SOD SUCC 100 MG/2ML INJ VIAL IV SCH ×3 (05:48→22:00)
[2020-10-06] MEDS: HEPARIN SODIUM (PORCINE) 5000 UNITS/ML 1ML VIAL SC SCH (05:49)
[2020-10-06] MEDS: InsuLIN REG 1unit/0.01ml Soln (100units/ml) SC SCH ×5 (06:01→23:56)
[2020-10-06] MEDS: hydrALAZINE HCL 20 MG/ML VL IV PRN (06:07)
--- NOTE | 2020-10-06 07:14 | NUR ---
REPORT RECEIVED FROM REPAIRER ART OBJECTS RN
--- NOTE | 2020-10-06 08:01 | NUR ---
ORAL CARE PERFORMED
[2020-10-06] MEDS: PANTOPRAZOLE 40 MG/10 ML VIAL INJ IV SCH (09:40)
[2020-10-06] MEDS: MEROPENEM 1GM IVPB 100 ML IV SCH ×2 (09:41→22:00)
[2020-10-06] MEDS: INSULIN LANTUS (GLARGINE) 1 /0.01ml (100units/ml) SC SCH (09:44)
--- NOTE | 2020-10-06 09:49 | NUR ---
DR. BRUNO AT [facility]
[2020-10-06] MEDS: DOPamine 1600MCG/ML D5W 250 ML IV SCH ×2 (10:30→20:35)
[2020-10-06] MEDS: SOD CHL 0.45% WITH 20MEQ KCL 1,000 ML IV SCH ×2 (10:35→18:17)
--- NOTE | 2020-10-06 11:06 | NUR ---
FAMILY SISTER UPDATED ON PATIENT STATUS. PLACED SISTER ON PORTABLE PHONE SO SHE WOULD SPEAK TO PATIENT
--- NOTE | 2020-10-06 11:29 | NUR ---
Nutrition Followup Note Wt 84.0 kg Pt extubated 10/05, sleeping when rounded this am. Pt is NPO with no diet order and with no alternate nutrition per RN. Md yet to round Est energy needs BW 86 [id number] kcal (23-25 kcal/kg BW), Est protein needs: 68-86 g (0.8-1.0g/kg BW r/t elev RFT severe hypoalb) Will reassess prn. Labs: BUN 42 H CA 6.7 L, GLU 175 H ALB 1.3 L BM: Pt with 2 BMs 10/03 per Rn note Skin: BS 10 high risk,full details in associate director career services note PES: Altered nutrition related lab values r.t current chronic medical condition aeb elev RFT hypocalcemia, severe hypoalb hyperglycemia Impaired swallowing r.t current medical condition aeb pt`s intubated sedated with order of NPO Comments: Will continue to monitor NPO status, skin status. F/u high 2-3 days Rec: 1) advance diet as medically feasible 2) consider EN support with Glucerna 1.2 @ 70 ml/hr per MD approval 3) refer to CDE on DC 4) consider PN support if GI is not accessible 6) continue current plan of care
--- NOTE | 2020-10-06 12:49 | NUR ---
Spoke with Cynthia JIANG from [facility] [phone] gave verbal update on the patient, patient has auth for his stay 10/05/20 #[id number].
--- NOTE | 2020-10-06 13:14 | NUR ---
PHYSICAL THERAPY AT BEDSIDE
[2020-10-06] MEDS ORDERED: FUROSEMIDE 20 MG/2 ML VIAL IV ONE (14:15)
[2020-10-06] MEDS: NOREPINEPHRINE BITARTRATE 16 MG in SODIUM CHL 0.9% 250 ML IV SCH (15:30)
[2020-10-07] VITALS (56 sets, daily range): BP systolic 112–163; BP diastolic 51–77
[2020-10-07] MEDS: ALBUTEROL SULF 2.5 MG/0.5ML(0.5%) NEB SOLN NEB SCH ×4 (00:47→18:51)
[2020-10-07] MEDS: IPRATROPIUM BROM 0.5 MG/2.5ML INH SOL NEB SCH ×4 (00:47→18:51)
[2020-10-07] MEDS: D5W/SOD CHL 0.45% 1,000 ML IV SCH ×2 (03:16→16:15)
[2020-10-07 04:44] LABS: Basophils # (auto) 0 10 ^3/uL (0-0.2); Basophils % (auto) 0.2 % (0.0-2.0); Eosinophils # (auto) 0 10 ^3/uL (0-0.8); Hematocrit 30.4 % (41.0-53.0); Hemoglobin 10.2 g/dL (13.5-17.5); Lymphocytes # (auto) 0.5 10 ^3/uL (0.4-5.4); Lymphocytes % (auto) 3.7 % (10.0-50.0); Mean Corpuscular Hemoglobin 30.7 pg (28.0-32.0); Mean Corpuscular Hgb Conc. 33.5 g/dL (32.0-36.0); Mean Corpuscular Volume 91.6 fL (80.0-100.0); Monocytes # (auto) 0.5 10 ^3/uL (0-1.3); Monocytes % (auto) 3.7 % (0.0-12.0); Neutrophils # (auto) 12.2 10 ^3/uL (1.6-8.6); Neutrophils % (auto) 92.4 % (37.0-80.0); Platelet Count (auto) 119 10^3/uL (140-450); Red Blood Cells 3.32 10^6/uL (4.5-5.90); Red Cell Distribution Width 14.3 % (11.8-14.3); White Blood Cell 13.2 10^3/uL (4.4-10.8)
[2020-10-07 04:58] LABS: INR 1.12 (0.9-1.15); Partial Thromboplastin Time 27.6 sec (23.0-31.2)
[2020-10-07 05:05] LABS: Potassium 3.8 mmol/L (3.5-5.1)
[2020-10-07] MEDS: SOD CHL 0.45% WITH 20MEQ KCL 1,000 ML IV SCH ×2 (05:05→16:05)
[2020-10-07] MEDS: HYDROCORTISONE SOD SUCC 100 MG/2ML INJ VIAL IV SCH ×3 (05:06→22:22)
[2020-10-07] MEDS: InsuLIN REG 1unit/0.01ml Soln (100units/ml) SC SCH ×3 (05:06→18:30)
[2020-10-07 05:11] LABS: Albumin 1.4 g/dL (3.4-5.0); BUN/Creatinine Ratio 42.3; Bilirubin, Total 1.1 mg/dL (0.2-1.0); Calcium 6.7 mg/dL (8.5-10.1); Total Protein 4.6 g/dL (6.4-8.2)
[2020-10-07] MEDS: ACCU-CHEK COMFORT CURVE STRIP VI SCH ×4 (05:48→18:30)
--- NOTE | 2020-10-07 09:30 | NUR ---
PT TAKEN OFF BIPAP AT THIS TIME AND PLACED ON 4L OXYMIZER WITH SPO2 93%, HR 95, RR 29, BP 143/78. NO DISTRESS NOTED. ERNESTO TAYLOR MADE AWARE. WILL CONTINUE TO MONITOR PT.
[2020-10-07] MEDS: MEROPENEM 1GM IVPB 100 ML IV SCH ×2 (10:27→22:22)
[2020-10-07] MEDS: PANTOPRAZOLE 40 MG/10 ML VIAL INJ IV SCH (10:27)
[2020-10-07] MEDS: INSULIN LANTUS (GLARGINE) 1 /0.01ml (100units/ml) SC SCH (12:15)
--- NOTE | 2020-10-07 12:41 | NUR ---
PT WAS NTS, SX LARGE AMOUNTS OF COPIOUS DARK BROWN SECRETIONS. PT WAS PLACED BACK ON BIPAP SETTINGS OF 10/5, BUR 12, 45% FIO2. WILL CONTINUE TO MONITOR PT.
--- NOTE | 2020-10-07 14:28 | NUR ---
PT REMOVED FROM BIPAP AND PLACED ON 6L NC AND JESSICA. WELL. SPO2 93%.
[2020-10-07] MEDS ORDERED: FUROSEMIDE 40 MG/4 ML VIAL IV ONE (14:30)
[2020-10-07] MEDS: ACETYLCYSTEINE 10 %(100MG/ML) SOL 4ML NEB SCH (18:51)
--- NOTE | 2020-10-07 20:00 | NUR ---
DR. ELLIS AT BEDSIDE, NEW ORDERS MADE. PER DR. ELLIS, CAN DO CK IN THE MORNING
[2020-10-08] VITALS (101 sets, daily range): BP systolic 134–183; BP diastolic 49–85
[2020-10-08] MEDS: ACCU-CHEK COMFORT CURVE STRIP VI SCH ×3 (00:05→11:35)
[2020-10-08] MEDS: ALBUTEROL SULF 2.5 MG/0.5ML(0.5%) NEB SOLN NEB SCH ×4 (00:15→18:32)
[2020-10-08] MEDS: IPRATROPIUM BROM 0.5 MG/2.5ML INH SOL NEB SCH ×4 (00:15→18:32)
[2020-10-08] MEDS: ACETYLCYSTEINE 10 %(100MG/ML) SOL 4ML NEB SCH ×4 (00:16→18:33)
[2020-10-08] MEDS: DOPamine 1600MCG/ML D5W 250 ML IV SCH ×2 (01:31→20:00)
--- NOTE | 2020-10-08 03:25 | NUR ---
Elimination/hygiene Small amount of soft brown stools noted, cleansed and kept dry and comfortable
--- NOTE | 2020-10-08 03:30 | NUR ---
Patient bathe/linen change Patient given complete bath. Skin integrity assessed for any changes. Linens and gown changed. Patient repositioned for comfort.
--- NOTE | 2020-10-08 03:45 | NUR ---
Dressing optifoam dressings in sacrum and right upper back changed, cradle to scrotal area
[2020-10-08 04:37] LABS: BUN/Creatinine Ratio 43.7; Calcium 6.7 mg/dL (8.5-10.1); Potassium 3.6 mmol/L (3.5-5.1)
[2020-10-08] MEDS: HYDROCORTISONE SOD SUCC 100 MG/2ML INJ VIAL IV SCH ×3 (05:33→22:07)
[2020-10-08] MEDS: InsuLIN REG 1unit/0.01ml Soln (100units/ml) SC SCH ×3 (06:08→11:44)
--- NOTE | 2020-10-08 06:46 | NUR ---
SMALL INCONTINENT STOOL
--- NOTE | 2020-10-08 07:30 | NUR ---
ASSESS- PT. LYING IN BED ON BIPAP 10/5, FIO2-45%. LUNGS CLEAR IKE. INSPIRATORY AND EXPIRATORY. NO SOB. PT. ORIENTED TO SELF AND PLACE. DENIES ANY PAIN OR DISCOMFORT. UPPER AND LOWER EXTREMITIES IKE. EXTREMELY WEAK. ABD. SOFT, LG., NON-TENDER. BOWEL SOUNDS ALL FOUR QUADRANTS. PT. IS NPO. F/C TO GRAVITY WITH YELLOW URINE WITH SEDIMENT. RADIAL PULSES STRONG, PALPABLE IKE. DORSALIS PEDAL PULSES STRONG, PALPABLE IKE. 2 PLUS EDEMA UPPER ARMS AND HANDS IKE. LE WITH 1 PLUS EDEMA. TLC LT. IJ INTACT. RECTAL PROBE IN PLACE. SCROTUM VERY SWOLLEN. ABRASION TO CHEST, OPEN TO AIR. DTI RT. EAR OPEN TO AIR. SKIN TEAR RT. UPPER BACK WITH OPTIFOAM DSG. D/I. SKIN TEARS TO SACRUM WITH OPTIFOAM DSG. D/I.
[2020-10-08] MEDS: SOD CHL 0.45% WITH 20MEQ KCL 1,000 ML IV SCH ×2 (08:53→10:58)
--- NOTE | 2020-10-08 09:40 | NUR ---
PHYSICAL THERAPY AT FOR ROM. PT. CURRENTLY ON BIPAP.
[2020-10-08] MEDS: PANTOPRAZOLE 40 MG/10 ML VIAL INJ IV SCH (09:43)
[2020-10-08] MEDS: MEROPENEM 1GM IVPB 100 ML IV SCH ×2 (09:43→22:07)
[2020-10-08] MEDS: INSULIN LANTUS (GLARGINE) 1 /0.01ml (100units/ml) SC SCH (09:45)
--- NOTE | 2020-10-08 11:43 | NUR ---
Nutrition Followup Note Wt 87.0 kg Pt extubated 10/05, on BIPAP sleeping when rounded this am. Pt is NPO with no diet order and with no alternate nutrition per RN. Est energy needs BW 86 [id number] kcal (23-25 kcal/kg BW), Est protein needs: 68-86 g (0.8-1.0g/kg BW r/t elev RFT severe hypoalb) Will reassess prn. Labs: BUN 45 H CA 6.7 L BM: Pt with 1 BM yesterday per Rn note Skin: BS 11 high risk,full details in home care attendant note PES: Altered nutrition related lab values r.t current chronic medical condition aeb elev RFT hypocalcemia, severe hypoalb hyperglycemia Impaired swallowing r.t current medical condition aeb pt`s intubated sedated with order of NPO Comments: Will continue to monitor NPO status, skin status. F/u high 2-3 days Rec: 1) advance diet as medically feasible 2) consider EN support with Glucerna 1.2 @ 70 ml/hr per MD approval 3) refer to CDE on DC 4) consider PN support if GI is not accessible 6) continue current plan of care
--- NOTE | 2020-10-08 11:45 | NUR ---
DR. OLVERA Provider/Hospitalist at bedside. NEW ORDERS RECEIVED.
--- NOTE | 2020-10-08 14:30 | NUR ---
DR. BOONE Provider/Hospitalist at bedside. GAVE UPDATE ON PT.
--- NOTE | 2020-10-08 15:12 | NUR ---
DR. BRUNO Provider/Hospitalist at bedside. GAVE UPDATE ON PT. NEW ORDERS RECEIVED.
[2020-10-08] MEDS ORDERED: CLINIMIX PER PHARMACY 0 ML IV SCH (15:30)
[2020-10-08] MEDS ORDERED: DEXTROSE (50%) 50ML SYRG IV PRN (16:00)
--- NOTE | 2020-10-08 16:30 | NUR ---
PT'S. DTG. CALLED, HAD PASSWORD. GAVE UPDATE OVER THE PHONE.
[2020-10-08 16:58] LABS: Albumin 1.4 g/dL (3.4-5.0); Bilirubin, Direct 0.4 mg/dL (0-0.2); Magnesium 2.2 mg/dL (1.6-2.6)
[2020-10-08 17:02] LABS: Bilirubin, Total 0.9 mg/dL (0.2-1.0); Pre Albumin 7.1 mg/dL (20.0-40.0)
[2020-10-08] MEDS ORDERED: ACCU-CHEK COMFORT CURVE STRIP VI SCH (18:00)
[2020-10-08] MEDS ORDERED: InsuLIN REG 1unit/0.01ml Soln (100units/ml) SC SCH (18:00)
--- NOTE | 2020-10-08 18:35 | NUR ---
DR. ELLIS Provider/Hospitalist at bedside.
--- NOTE | 2020-10-08 19:50 | NUR ---
ADMITTED ON 09/24/20. TODAY IS THE DAY. POST CODE BLUE IN AMBULANCE COMING HERE. ROSC. INTUBATED IN OUR ER. COFFEE GROUND EMESIS. PLACED ON LEVOPHED. BROUGHT HERE. PRIMARY MD IS DR FAGAN. DR OLVERA CONSULTED FOR RENZO. DR BROWNE CONSULTED FOR PULMONARY. DR SARMIENTO CONSULTED FOR PANCYTOPENIA. PLATELET COUNT IS NOW 119. DR FRANKS BROUGHT IN FOR THE COFFEE GROUND EMESIS ON ADMISSION. DR GALVAN ON BOARD WELL. EXTUBATED TUESDAY. BIPAP 09/01 RATE 12, 45%. SWALLOW EVAL ORDERED. LIJ TLC WITH D5W AT 150CC/HR. HIT SENT OUT AND IS STILL PENDING RESULTS. NA 145. CALCIUM HAS BEEN RUNNING LOW. LIVER ENZYMES ELEVATED. HEAD CT RESULTED. EEG RESULTED. POTASSIUM 3.6. REPLACED WITH NO FEVERS NSR WITHOUT ECTOPY. ANTIBIOTIC: MERREM. ON SOLUCORTEF. SACRAL WOUND COVERED WITH FOAM DRESSINGS. ON LANTUS. Q 6 HOUR ACCUCHECKS. SCROTUM IS WEEPING AND IS IN A PILLOW CRADLE. DOPAMINE RENAL DOSE. LISA IN PLACE WITH GOOD URINE OUTPUT. SCDS ON. PATIENT IS AWAKE, DOESN'T SAY MUCH BUT NODS TO QUESTIONS ASKED. ALL EXTREMITIES ARE STIFF. PT WORKING WITH HIM BUT ARE UNABLE TO GET HIM UP TO THE CHAIR YET.
[2020-10-08] MEDS ORDERED: CLINIMIX PER PHARMACY IV NR (20:00)
--- NOTE | 2020-10-08 22:00 | NUR ---
VSS. IN TALKING WITH HIM HE NODS YES TO HIS NAME. IN ASKING HIM TO ANSWER A QUIESTION, HE DOES NOT. HE WILL NOT HIS HEAD. I INFORMED HIM HOW HE GOT HERE, WHERE HE IS AND DETAILED HIS PROGRESS. LUNGS CLEAR. BIPAP SETTING UNCHANGED. REPOSITIONED.
[2020-10-08] MEDS: hydrALAZINE HCL 20 MG/ML VL IV PRN (22:49)
--- NOTE | 2020-10-08 22:50 | NUR ---
APRESOLINE FOR A CONSISTENT SBP GREATER THAN 160.
[2020-10-09] VITALS (54 sets, daily range): BP systolic 106–183; BP diastolic 44–84
[2020-10-09] MEDS ORDERED: DEXTROSE (50%) 50ML SYRG IV SCH
--- NOTE | 2020-10-09 | NUR ---
RT GIVING PATIENT A TREATMENT. BOOSTED UP IN BED. LUNGS CLEAR. COARSE NONPRODUCTIVE COUGH. SCROTUM CLEANSED WITH WOUND SPRAY EVERY 2 HOURS. DRIED AND NEW SLING PLACED. GENERALIZED PITTING EDEMA.
[2020-10-09] MEDS: ALBUTEROL SULF 2.5 MG/0.5ML(0.5%) NEB SOLN NEB SCH ×4 (00:06→18:21)
[2020-10-09] MEDS: IPRATROPIUM BROM 0.5 MG/2.5ML INH SOL NEB SCH ×4 (00:06→18:21)
[2020-10-09] MEDS: ACETYLCYSTEINE 10 %(100MG/ML) SOL 4ML NEB SCH ×4 (00:06→18:22)
--- NOTE | 2020-10-09 03:00 | NUR ---
AM LABS DONE
--- NOTE | 2020-10-09 04:00 | NUR ---
CHG BATH DONE
[2020-10-09 04:36] LABS: Basophils # (auto) 0 10 ^3/uL (0-0.2); Basophils % (auto) 0.3 % (0.0-2.0); Eosinophils # (auto) 0 10 ^3/uL (0-0.8); Hematocrit 30.9 % (41.0-53.0); Hemoglobin 10.1 g/dL (13.5-17.5); Lymphocytes # (auto) 0.5 10 ^3/uL (0.4-5.4); Lymphocytes % (auto) 4.5 % (10.0-50.0); Mean Corpuscular Hemoglobin 30.1 pg (28.0-32.0); Mean Corpuscular Hgb Conc. 32.7 g/dL (32.0-36.0); Mean Corpuscular Volume 92.1 fL (80.0-100.0); Monocytes # (auto) 0.6 10 ^3/uL (0-1.3); Monocytes % (auto) 5.2 % (0.0-12.0); Nucleated Red Blood Cells % 0.2 %; Platelet Count (auto) 152 10^3/uL (140-450); Red Blood Cells 3.35 10^6/uL (4.5-5.90); Red Cell Distribution Width 14.4 % (11.8-14.3); White Blood Cell 11.1 10^3/uL (4.4-10.8)
[2020-10-09 04:54] LABS: Albumin 1.3 g/dL (3.4-5.0); Calcium 6.5 mg/dL (8.5-10.1); Magnesium 2.1 mg/dL (1.6-2.6); Potassium 3.3 mmol/L (3.5-5.1)
[2020-10-09 04:58] LABS: Phosphorus 2.9 mg/dL (2.5-4.90); Total Protein 4.7 g/dL (6.4-8.2)
--- NOTE | 2020-10-09 05:00 | NUR ---
SMALL INCONTINENT STOOL
[2020-10-09] MEDS: InsuLIN REG 1unit/0.01ml Soln (100units/ml) SC SCH ×4 (06:00→17:27)
[2020-10-09] MEDS: HYDROCORTISONE SOD SUCC 100 MG/2ML INJ VIAL IV SCH ×3 (06:28→21:28)
[2020-10-09] MEDS: ACCU-CHEK COMFORT CURVE STRIP VI SCH ×4 (06:28→17:28)
[2020-10-09] MEDS: hydrALAZINE HCL 20 MG/ML VL IV PRN (08:11)
[2020-10-09] MEDS: MEROPENEM 1GM IVPB 100 ML IV SCH ×2 (09:27→21:09)
[2020-10-09] MEDS: PANTOPRAZOLE 40 MG/10 ML VIAL INJ IV SCH (09:27)
[2020-10-09] MEDS: INSULIN LANTUS (GLARGINE) 1 /0.01ml (100units/ml) SC SCH (09:28)
[2020-10-09] MEDS ORDERED: POTASSIUM CHL 20MEQ/100ML 100 ML IV ONE (09:30)
[2020-10-09] MEDS ORDERED: TPN PER PHARMACY 0 ML IV SCH (12:00)
--- NOTE | 2020-10-09 12:37 | NUR ---
Spoke with Cynthia JIANG from [facility] [phone] and informed her that I was faxing a clinical packet requesting for authorization to transfer the patient to [facility]. Ask who we usually use and told her [facility], Told her that Marimar GREWAL is the coordinator for [facility] and gave her the number [phone].
[2020-10-09] MEDS ORDERED: Nepro With Carb Steady 1 Liter Bottle GT SCH (13:45)
--- NOTE | 2020-10-09 14:00 | NUR ---
Respiratory note: ROUTINE BIPAP CHECK. TITRATED FIO2 TO 40%
--- NOTE | 2020-10-09 15:14 | NUR ---
Received a call from Cynthia JIANG at [facility] and and gave Authorization for [place] when a bed is found and the discharge is written, Hospital authorization #[id number], and Transportation auth #[id number]. Left a message with Dr Bowden to see if he wants to discharge the patient today if a bed is available. Called Marimar GREWAL coordinator at [facility] and left a message regarding the hospital authorization number.
--- NOTE | 2020-10-09 15:33 | NUR ---
D/C Planning Per social service consult for [facility]. MD order was faxed to [facility]. Patient has been accepted and bed is pending. There is no discharge order from MD.
--- NOTE | 2020-10-09 15:34 | NUR ---
Respiratory note: AT BEDSIDE FOR CHEST TUBE PLACEMENT. RIGHT CHEST TUBE IN PLACE WITHOUT INCIDENT BY . PT TAKEN OFF BIPAP PER ORDERS. PT WAS PLACED ON 10L OXYMIZER. HR 89, RR 40, POX 94%, BP 94/49. WILL ENDORSE PT'S CARE TO NOC RT.
[2020-10-09] MEDS: MORPHINE SULF INJ 2 MG/ML SYRINGE 1ML IV PRN (15:54)
[2020-10-09] MEDS ORDERED: FUROSEMIDE 40 MG/4 ML VIAL IV ONE (17:00)
[2020-10-09] MEDS ORDERED: FREE WATER GT SCH (18:00)
--- NOTE | 2020-10-09 18:05 | NUR ---
DR MARIN CAME AND SAW THE PATIENT AND HE DID RIGHT THORACENTESIS AT THE THE BEDSIDE AND AND OBTAINED 1500 CC SENT SPECIMEN TO THE LAB CHEST XRAY WAS DONE AND DR MARIN SAID THAT PATIENT DEVELOP PNEUMOTHORAX AND NEEDS CHEST TUBE. CHEST TUBE WAS INSERTED BY DR. MARTINEZ WITH AJ KIT ON THE ATRIUM PLEUROVA. DRAINED SEROSANGENEOUS [address] BRUNO CAME THIS MORNING AND ORDERED TPN TO START TONITE BY PHARMACY. UNABLE TO PERFORM SWALLOW EVAL PATIENT UNABLE TO SPEAK AND AND VERY WEAK. PATIENT STARTED ON LASIX.
[2020-10-09] MEDS ORDERED: CLINIMIX PER PHARMACY IV NR (20:00)
[2020-10-09] MEDS ORDERED: TPN PER PHARMACY IV NR ×10 (20:00)
--- NOTE | 2020-10-09 20:55 | NUR ---
SPO2 84% ON 10L OXYMIZER AND RR IN 40's. PT PLACED ON 15L NRB AND NTS X2 FOR MODERATE THICK BROWN SECRETIONS. SPO2 96% ON NRB, HR 94, RR 34. ERNESTO CAMPBELL AT BEDSIDE.
[2020-10-10] VITALS (36 sets, daily range): BP systolic 78–149; BP diastolic 43–77
[2020-10-10] MEDS: ACETYLCYSTEINE 10 %(100MG/ML) SOL 4ML NEB SCH ×4 (00:12→18:26)
[2020-10-10] MEDS: ALBUTEROL SULF 2.5 MG/0.5ML(0.5%) NEB SOLN NEB SCH ×4 (00:12→18:26)
[2020-10-10] MEDS: IPRATROPIUM BROM 0.5 MG/2.5ML INH SOL NEB SCH ×4 (00:12→18:26)
--- NOTE | 2020-10-10 00:22 | NUR ---
AT BEDSIDE FOR SCHEDULED MED NEB TX. PT APPEARS TO HAVE INCREASED WOB WITH SUSTAINED SPO2 OF 85% ON 15L NRB. PT PLACED ON B11 BIPAP WITH SETTINGS 10/5, BUR 12, AND 100% FIO2. BREATH SOUNDS ARE COARSE INSPIRATORY CRACKLES. MED NEB TX ADMINISTERED INLINE. NO ADVERSE REACTION NOTED.
[2020-10-10 03:53] LABS: Basophils # (auto) 0 10 ^3/uL (0-0.2); Basophils % (auto) 0.1 % (0.0-2.0); Eosinophils # (auto) 0 10 ^3/uL (0-0.8); Eosinophils % (auto) 0.1 % (0.0-7.0); Hematocrit 29.2 % (41.0-53.0); Hemoglobin 9.5 g/dL (13.5-17.5); Lymphocytes # (auto) 0.4 10 ^3/uL (0.4-5.4); Lymphocytes % (auto) 3.9 % (10.0-50.0); Mean Corpuscular Hgb Conc. 32.5 g/dL (32.0-36.0); Mean Corpuscular Volume 92.2 fL (80.0-100.0); Monocytes # (auto) 0.4 10 ^3/uL (0-1.3); Monocytes % (auto) 3.7 % (0.0-12.0); Neutrophils # (auto) 10.5 10 ^3/uL (1.6-8.6); Neutrophils % (auto) 92.2 % (37.0-80.0); Nucleated Red Blood Cells % 0.1 %; Platelet Count (auto) 143 10^3/uL (140-450); Red Blood Cells 3.17 10^6/uL (4.5-5.90); Red Cell Distribution Width 14.5 % (11.8-14.3); White Blood Cell 11.4 10^3/uL (4.4-10.8)
[2020-10-10 04:13] LABS: Albumin 1.3 g/dL (3.4-5.0); BUN/Creatinine Ratio 44.9; Calcium 6.5 mg/dL (8.5-10.1); Magnesium 2.1 mg/dL (1.6-2.6); Potassium 3.3 mmol/L (3.5-5.1)
[2020-10-10 04:16] LABS: Bilirubin, Total 0.8 mg/dL (0.2-1.0); Phosphorus 3.2 mg/dL (2.5-4.90); Total Protein 4.4 g/dL (6.4-8.2)
[2020-10-10] MEDS: InsuLIN REG 1unit/0.01ml Soln (100units/ml) SC SCH ×4 (05:31→17:45)
[2020-10-10] MEDS: HYDROCORTISONE SOD SUCC 100 MG/2ML INJ VIAL IV SCH ×3 (05:32→22:21)
[2020-10-10] MEDS: ACCU-CHEK COMFORT CURVE STRIP VI SCH ×4 (05:33→17:45)
--- NOTE | 2020-10-10 05:54 | NUR ---
Respiratory note: UNABLE TO PERFORM CPT WITH MEDNEB TX DUE TO CHEST TUBE PLACEMENT, AND PT GRIMACING. RN AWARE. WILL CONTINUE TO MONITOR PT.
--- NOTE | 2020-10-10 05:54 | NUR ---
Respiratory note: RECEIVED PT FROM JOURNEYMAN PRESS OPERATOR ON BIPAP B-11 PLUGGED INTO RED OUTLET. ALL VENT ALARMS ARE AUDIBLE, AND FUNCTIONING. AMBU BAG/MASK IS AT BEDSIDE CONNECTED TO AN O2 SOURCE. FACIAL BIPAP IN PLACE, WITH NO SKIN BREAK DOWN NOTED. BS ARE COARSE/DIMINISHED ON LEFT SIDE. MEDNEB TX GIVEN INLINE, WITH NO ADVERSE EFFECTS NOTED. RIGHT SIDED CHEST TUBE IN PLACE. SUBCUTANEOUS EMPHYSEMA NOTED ON LEFT SIDE OF CHEST TOWARDS NECK. NO OTHER CHANGES ORDERED AT THIS TIME. WILL CONTINUE TO MONITOR PT.
[2020-10-10] MEDS ORDERED: POTASSIUM PHOSPHATE 22 MEQ in SODIUM CHL 0.9% 100 ML IV ONE (08:45)
[2020-10-10] MEDS: PANTOPRAZOLE 40 MG/10 ML VIAL INJ IV SCH (09:27)
[2020-10-10] MEDS: MEROPENEM 1GM IVPB 100 ML IV SCH ×2 (09:27→22:20)
[2020-10-10] MEDS: FUROSEMIDE 40 MG/4 ML VIAL IV SCH (09:28)
[2020-10-10] MEDS: INSULIN LANTUS (GLARGINE) 1 /0.01ml (100units/ml) SC SCH (09:33)
[2020-10-10] MEDS: MORPHINE SULF INJ 2 MG/ML SYRINGE 1ML IV PRN ×2 (09:34→16:01)
--- NOTE | 2020-10-10 10:19 | NUR ---
Received a call from Marimar GREWAL at [facility], gave up date on t he patient and stated they can place chest tubes and do thoracentesis if the Md still wants to transfer the patient. Informed the Nurse Cathy to let the MD know.
--- NOTE | 2020-10-10 10:36 | NUR ---
DR MARIN CAME AND SAW THE PATIENT AND DID THORACENTESIS ON THE LEFT SIDE AND OBTAINED 700 CC. SEND SPECIMEN TO LAB. PATIENT ON OXYMIZER AT 6 LITERS PATIENT STILL BREATHING ON THE 30'S.
--- NOTE | 2020-10-10 11:45 | NUR ---
Faxed update progress notes as requested in a message received from Cynthia JIANG at [facility]
--- NOTE | 2020-10-10 12:10 | NUR ---
Respiratory note: PT TAKEN OFF OF BIPAP, AND PLACED ON 6L OXYMIZER PER DR STAFFORD'S ORDER. PT TOLERATED CHANGE WELL. SPO2 94%, HR 101, RR 33. RN AWARE. WILL CONTINUE TO MONITOR PT.
--- NOTE | 2020-10-10 14:00 | NUR ---
Respiratory note: PT SPO2 DECREASED TO 88%, FIO2 INCREASED TO 8L OXYMIZER. PT TOLERATED CHANGE WELL. RN AWARE. SPO2 94%, HR 98, RR 27, BS COARSE BILATERALLY. PRN MEDNEB TX'S RECOMMENDED TO RN
--- NOTE | 2020-10-10 14:07 | NUR ---
Nutrition Followup Note Wt 85.0 kg Pt was with a medical team for a procedure when rounded this am. Pt is NPO with TPN running @ 43 ml/hr, providing 880 kcals, 50g protein and 680 NPCs. PN support meets 41-44% of est energy needs and 58-74% of est protein needs. Est energy needs BW 86 [id number] kcal (23-25 kcal/kg BW), Est protein needs: 68-86 g (0.8-1.0g/kg BW r/t elev RFT severe hypoalb) Will reassess prn. Labs:K 3.3 L, CA 6.5 L, AST 95 H, ALT 112 H, Alk Phos 315 H, Alb 1.3 L BM: Pt with 2 BM on 10/09 per RN note Skin: BS 13 mod risk,full details in geriatric personal care aide note PES: 1) Altered nutrition related lab values r.t current chronic medical condition aeb elev RFT hypocalcemia, severe hypoalb hyperglycemia 2) Impaired swallowing r.t current medical condition aeb pt`s intubated sedated with order of NPO Comments: Will continue to monitor NPO status, skin status. F/u high 2-3 days Rec: 1) advance diet as medically feasible 2) consider EN support with Glucerna 1.2 @ 70 ml/hr per MD approval 3) refer to CDE on DC 4) consider PN support if GI is not accessible 5) continue current plan of care
--- NOTE | 2020-10-10 14:45 | NUR ---
Respiratory note: PT SPO2 DECREASED TO 76%. PT PLACED BACK ON BIPAP WITH PREVIOUS SETTINGS. SPO2 91%, HR 110, RR 39, BS COARSE BILATERALLY. LM FOR DR STAFFORD TO CALL BACK REGARDING BIPAP CHANGES. RN AT BEDSIDE.
[2020-10-10] MEDS ORDERED: IPRATROPIUM BROM 0.5 MG/2.5ML INH SOL NEB PRN (15:15)
[2020-10-10] MEDS ORDERED: ALBUTEROL SULF 2.5 MG/0.5ML(0.5%) NEB SOLN NEB PRN (15:15)
[2020-10-10] MEDS ORDERED: FUROSEMIDE 40 MG/4 ML VIAL ONE (15:23)
[2020-10-10] MEDS ORDERED: FUROSEMIDE 40 MG/4 ML VIAL IV ONE (15:30)
--- NOTE | 2020-10-10 15:30 | NUR ---
PATIENT SATURATION DOWN TO 70 -80 RT CAME AND WENT BACK TO BIPAP AT 100 % FIO2 AND WILL TITRATE WHEN O2 SAT INCREASE. DR SANTOS SAW THE PATIENT AND NOTIFIED OF THE PROBLEM AND LUNGS SOUNDS COARSE ON THE LEFT SIDE. DR LUCAS ORDERED TO GIVE THE LASIX 40 MG NOW AND HE WILL WRITE THE ORDER FOR THE FLUID FOR HIGH SODIUM.
[2020-10-10] MEDS: D5W 5% 1,000 ML IV SCH (15:45)
--- NOTE | 2020-10-10 16:20 | NUR ---
Respiratory note: FIO2 DECREASED FROM 100%, TO 65%. PT TOLERATED CHANGE WELL. RN AWARE.
--- NOTE | 2020-10-10 19:45 | NUR ---
RESP R.T. PAGED REGARDING PT O2 SATS 86% ON BIPAP MASK.
[2020-10-10] MEDS ORDERED: TPN*HIGH CONC* PER PHARMACY IV NR ×11 (20:00)
--- NOTE | 2020-10-10 20:00 | NUR ---
OPEN ASSUMED CARE OF MALE PT ON BIPAP MASK. PT WITH INCREASED RR AND SUB OPTIMAL O2 SATS. PT OPENS EYES TO VERBAL. ABLE TO NOD HEAD YES OR NO TO SIMPLE QUESTIONS. PT UNABLE TO VERBALIZE. SR ON TARIFF PUBLISHING AGENT. L. IJ TLC IN PLACE ALL PORTS PATENT. DRESSING CDI. PT WITH SCABBED R. EAR. SKIN TEAR TO UPPER BACK WITH FOAM DRESSING IN PLACE. OPTIFOAM GENTLE SACRAL DRESSING IN PLACE OVER PRESSURE ULCERS TO COCCYX AREA WITH Z-GAURD BARRIER OINTMENT. PILLOWS USED TO OFFLOAD BONY PROMINENCES. PT WITH R. SIDED CHEST TUBE DRAINING SEROUS DRAINAGE TO ATRIUM COLLECTION UNIT SECURED TO FLOOR. NO AIR LEAK OR CREPITUS OBSERVED/PALPATED. LISA TO GRAVITY DRAINING CLEAR YELLOW URINE. BED IN LOWEST LOCKED POSITION. SIDE RAILS UP X 2. HOB ELEVATED 45 DEGREES TO FACILITATE OXYGENATION. WILL CONTINUE TO MONITOR.
--- NOTE | 2020-10-10 20:20 | NUR ---
RT NOTE BIPAP CHECK COMPLETED. PT SAT WAS GOING DOWN TO 86-88%. FIO2 TITRATED BACK UP TO 100%. PT SPO2 STILL FAILING TO COME UP. I/E PRESSURES INCREASED TO 16/8 PT NOW UP TO 95%. RT PLACED A CALL WITH DR STAFFORD BUT STILL HAVE NOT RECEIVED A CALL BACK.
--- NOTE | 2020-10-10 22:32 | NUR ---
RT NOTE BIPAP CHECK COMPLETED.STILL HAVE NOT RECEIVED CALL BACK FOR DR STAFFORD. PT SATS HAVE IMPROVED. SETTINGS PLACED BACK TO ORDERED SETTINGS OF 11/06. WILL WATCH PT SATS AND PLACE ANOTHER CALL IN TO DOCTOR.
--- NOTE | 2020-10-10 22:50 | NUR ---
RT NOTE 2ND CALL PLACED AND VOICEMAIL LEFT FOR DR STAFFORD. RT TRYING TO GET AN ORDER FROM THE DOCTOR TO INCREASE THE BIPAP PRESSURES. THE PT IS NOT TOLERATING THE LOWER PRESSURES ORDERED.
[2020-10-11] VITALS (47 sets, daily range): BP systolic 73–141; BP diastolic 40–87
[2020-10-11] MEDS: IPRATROPIUM BROM 0.5 MG/2.5ML INH SOL NEB SCH ×4 (00:06→18:05)
[2020-10-11] MEDS: ACETYLCYSTEINE 10 %(100MG/ML) SOL 4ML NEB SCH ×4 (00:06→18:07)
[2020-10-11] MEDS: ALBUTEROL SULF 2.5 MG/0.5ML(0.5%) NEB SOLN NEB SCH ×4 (00:06→18:05)
[2020-10-11] MEDS: ACCU-CHEK COMFORT CURVE STRIP VI SCH ×4 (01:15→17:42)
[2020-10-11] MEDS: InsuLIN REG 1unit/0.01ml Soln (100units/ml) SC SCH ×4 (01:19→17:17)
--- NOTE | 2020-10-11 04:10 | NUR ---
RESP/N.T. SUCTION PT UNABLE TO CLEAR SECRETIONS. WITH R.T. AT BEDSIDE. N.T. SUCTION PROVIDED. LARGE AMOUNT OF BOYER THICK SECRETIONS AND BROWN MUCOUS PLUG ASPIRATED VIA SUCTION CATHETER. PT TOLERATED WELL. PT PLACED BACK ON BIPAP MASK.
[2020-10-11 04:38] LABS: Basophils # (auto) 0 10 ^3/uL (0-0.2); Basophils % (auto) 0.1 % (0.0-2.0); Eosinophils # (auto) 0 10 ^3/uL (0-0.8); Hematocrit 27.2 % (41.0-53.0); Hemoglobin 9.1 g/dL (13.5-17.5); Lymphocytes # (auto) 0.5 10 ^3/uL (0.4-5.4); Lymphocytes % (auto) 6.5 % (10.0-50.0); Mean Corpuscular Hgb Conc. 33.4 g/dL (32.0-36.0); Mean Corpuscular Volume 92.7 fL (80.0-100.0); Monocytes # (auto) 0.3 10 ^3/uL (0-1.3); Neutrophils # (auto) 7.3 10 ^3/uL (1.6-8.6); Neutrophils % (auto) 89.4 % (37.0-80.0); Platelet Count (auto) 131 10^3/uL (140-450); Red Blood Cells 2.93 10^6/uL (4.5-5.90); Red Cell Distribution Width 14.5 % (11.8-14.3); White Blood Cell 8.1 10^3/uL (4.4-10.8)
[2020-10-11 04:51] LABS: Albumin 1.3 g/dL (3.4-5.0); Potassium 3.3 mmol/L (3.5-5.1)
[2020-10-11 04:56] LABS: BUN/Creatinine Ratio 50.5; Bilirubin, Total 0.9 mg/dL (0.2-1.0); Calcium 6.5 mg/dL (8.5-10.1); Magnesium 2.2 mg/dL (1.6-2.6); Phosphorus 3.1 mg/dL (2.5-4.90); Total Protein 4.4 g/dL (6.4-8.2)
[2020-10-11] MEDS: HYDROCORTISONE SOD SUCC 100 MG/2ML INJ VIAL IV SCH ×3 (05:09→22:09)
[2020-10-11] MEDS: FUROSEMIDE 40 MG/4 ML VIAL IV SCH (09:40)
[2020-10-11] MEDS: MEROPENEM 1GM IVPB 100 ML IV SCH ×2 (09:40→22:09)
[2020-10-11] MEDS: PANTOPRAZOLE 40 MG/10 ML VIAL INJ IV SCH (09:40)
[2020-10-11] MEDS: INSULIN LANTUS (GLARGINE) 1 /0.01ml (100units/ml) SC SCH (09:43)
--- NOTE | 2020-10-11 11:00 | NUR ---
WOUND CARE NOTE: IN TO SEE PATIENT AT THIS TIME FOR SKIN INTEGRITY MONITORING. PATIENT IS NOW RECEIVING OXYGEN BY WAY OF BIPAP MASK. HE CONTINUES TO REST ON ICU LOW AIRLOSS BED. PATIENT CONTINUES TO BE MAX ASSIST FOR HIS ADL'S, INCLUDING TURNING AND REPOSITIONING. PATIENT CONTINUES TO HAVE MULTIPLE WOUNDS, INCLUDING DTI, EVOLVING TO ESCHAR TO RIGHT LATERAL EAR. SCAB APPEARS TO BE REECE/IMPROVING, SKIN REMAINS INTACT. LEFT OPEN TO AIR. MULTIPLE DTI'S TO THE SACRUM CONTINUE TO EVOLVE OPEN. LARGE DTI TO THE RIGHT LOWER SACRUM IS OPEN, EVOLVING TO STAGE 3. CENTER OF WOUND BED IS STILL PURPLE, SKIN INTACT. OUTER PERIMETER OF WOUND BED IS OPEN, EVOLVED TO STAGE 3 WITH MINIMAL ADIPOSE TISSUE NOTED. REMAINING DTI'S HAVE EVOLVED OPEN TO STAGE 2 PRESSURE INJURIES. APPLIED THERAHONEY, OPTIFOAM GENTLE DRESSINGS TO ALL WOUNDS. RIGHT BACK HAS OPEN SKIN TEAR THAT IS PARTIAL THICKNESS. APPLIED THERAHONEY AND OPTIFOAM GENTLE DRESSING. ALL WOUNDS PHOTOGRAPHED FOR REFERENCE. ALL WOUND STATS CAN BE FOUND WITHIN WOUND ASSESSMENT, LINKED TO THIS NOTE. RECOMMEND: DAILY/PRN DRESSING CHANGES TO WOUNDS ON SACRUM; CONTINUATION WITH ALL OTHER WOUND CARE ORDERS PREVIOUSLY PRESCRIBED BY MD. WOUND CARE TEAM WILL CONTINUE TO MONITOR. Addendum: 10/11/20 at 1402 by Nora Forbes RN Amended: Links added.
[2020-10-11] MEDS: D5W 5% 1,000 ML IV SCH (11:45)
[2020-10-11] MEDS ORDERED: POTASSIUM PHOSPHATE 22 MEQ in SODIUM CHL 0.9% 100 ML IV ONE (12:00)
[2020-10-11] MEDS ORDERED: POTASSIUM CHL 20MEQ/100ML 100 ML IV SCH ×2 (12:00→12:30)
--- NOTE | 2020-10-11 12:00 | NUR ---
RETURNED PAGE NOTIFIED OF POTASSIUM LEVEL 3.3, REPLACEMENT ORDERS OBTAINED.
[2020-10-11] MEDS ORDERED: ROCURONIUM 10MG/ML 10ML VIAL IV ONE ×2 (13:42→15:45)
[2020-10-11] MEDS ORDERED: ETOMIDATE (2MG/ML) 20ML VIAL IV ONE ×2 (13:43→15:45)
[2020-10-11] MEDS ORDERED: fentaNYL Drip 2500mCg/250mlNS 250 ML IV ONE (13:44)
[2020-10-11] MEDS ORDERED: PROPOFOL 100 ML IV ONE (13:45)
[2020-10-11] MEDS ORDERED: MIDAZOLAM HCL 5 MG/ML-1ML VIAL ONE (14:01)
[2020-10-11] MEDS ORDERED: fentaNYL CITRATE 100 MCG/2 ML VL ONE (14:02)
[2020-10-11] MEDS ORDERED: LIDOCAINE 2%HCL (LOCAL ANESTH.) INJ 20ML MDV ONE (14:02)
--- NOTE | 2020-10-11 14:20 | NUR ---
PATIENT INTUBATED AT [address] MARIN AT ETT SIZE 8 AT 22 AT THE LIPS WITH VENT SETTINGS OF RATE 24 TV 450 FIO2 AT 80% PEEP 12. PATIENT ALSO HAD BRONCHOSCOPY DONE AFTER THE INTUBATION AND SENT SPECIMEN TO THE LAB. PATIENT WAS MEDICATED WITH ETOMIDATE 20 MG AND ROCORONIUM 50 MG DURING THE INTUBATION.
--- NOTE | 2020-10-11 16:21 | NUR ---
DR AJ RICHARDS RADIOLOGIST CALLED AND HE FOUNG SMALL LEFT APICAL PNEUMOTHORAX ON THE PATIENT TELEPHONE CALL TO DR MARIN AND AWAITING FOR RESPONSE LEFT MESSAGE TO HIM.
[2020-10-11] MEDS: LIDOCAINE VISCOUS 2% 15ML UD MT SCH (18:03)
[2020-10-11] MEDS ORDERED: TPN*HIGH CONC* PER PHARMACY IV NR ×10 (20:00)
[2020-10-11] MEDS: DOPamine 1600MCG/ML D5W 250 ML IV SCH (20:10)
[2020-10-11] MEDS: NOREPINEPHRINE 8 MG/250ML KIT 250 ML IV SCH ×2 (20:10→22:03)
[2020-10-12] VITALS (51 sets, daily range): BP systolic 85–125; BP diastolic 44–64
[2020-10-12] MEDS: ALBUTEROL SULF 2.5 MG/0.5ML(0.5%) NEB SOLN NEB SCH ×4 (00:50→18:28)
[2020-10-12] MEDS: ACETYLCYSTEINE 10 %(100MG/ML) SOL 4ML NEB SCH ×4 (00:51→18:28)
[2020-10-12] MEDS: IPRATROPIUM BROM 0.5 MG/2.5ML INH SOL NEB SCH ×4 (00:51→18:28)
[2020-10-12] MEDS: InsuLIN REG 1unit/0.01ml Soln (100units/ml) SC SCH ×5 (01:11→23:40)
[2020-10-12] MEDS: LIDOCAINE VISCOUS 2% 15ML UD MT SCH ×5 (01:13→23:38)
[2020-10-12] MEDS: fentaNYL Drip 2500mCg/250mlNS 250 ML IV SCH ×2 (04:15→20:16)
[2020-10-12] MEDS: PROPOFOL 100 ML IV SCH ×3 (04:15→20:15)
[2020-10-12] MEDS: ACCU-CHEK COMFORT CURVE STRIP VI SCH ×4 (05:43→23:48)
[2020-10-12 05:49] LABS: Albumin 1.2 g/dL (3.4-5.0); Calcium 6.9 mg/dL (8.5-10.1); Magnesium 2.1 mg/dL (1.6-2.6); Potassium 3.8 mmol/L (3.5-5.1)
[2020-10-12] MEDS: HYDROCORTISONE SOD SUCC 100 MG/2ML INJ VIAL IV SCH ×3 (05:53→22:18)
[2020-10-12 05:54] LABS: BUN/Creatinine Ratio 51.5; Bilirubin, Total 0.6 mg/dL (0.2-1.0); Phosphorus 3.4 mg/dL (2.5-4.90); Total Protein 4.4 g/dL (6.4-8.2)
--- NOTE | 2020-10-12 09:00 | NUR ---
Assessment completed. ETT intact to vent. Tolerating vent setting well. oral care provided. V/S stable.
[2020-10-12] MEDS: PANTOPRAZOLE 40 MG/10 ML VIAL INJ IV SCH ×2 (10:10→22:17)
[2020-10-12] MEDS: FUROSEMIDE 40 MG/4 ML VIAL IV SCH (10:10)
[2020-10-12] MEDS: MEROPENEM 1GM IVPB 100 ML IV SCH ×2 (10:10→22:18)
[2020-10-12] MEDS: INSULIN LANTUS (GLARGINE) 1 /0.01ml (100units/ml) SC SCH (10:22)
--- NOTE | 2020-10-12 10:34 | NUR ---
Nutrition Followup Note Wt 84.1 kg Pt was intubated and sedated with propofol at 4.956 ml/hr providing 131 kcal from lipids . Pt is NPO with TPN running @ 45 ml/hr, providing 1128 kcals, 60g protein and 888 NPCs. PN support meets 52-57% of est energy needs and 70-88% of est protein needs. Est energy needs BW 86 [id number] kcal (23-25 kcal/kg BW), Est protein needs: 68-86 g (0.8-1.0g/kg BW r/t elev RFT severe hypoalb) Will reassess prn. Labs:Na 150H, Cl 112H, BUN 51H, GLUC 242H, Alb 1.2L, Ca 6.9L BM: Pt with 6 BMs on 10/09 per RN note Skin: BS 14 mod risk,full details in rn intensive care unit note PES: 1) Altered nutrition related lab values r.t current chronic medical condition aeb elev RFT hypocalcemia, severe hypoalb hyperglycemia 2) Impaired swallowing r.t current medical condition aeb pt`s intubated sedated with order of NPO Comments: Will continue to monitor NPO status, skin status. F/u high 2-3 days Rec: 1) Continue to advance TPN to meet >75% of needs 2) refer to CDE on DC 3) advance diet as medically feasible 4) continue current plan of care
[2020-10-12 10:47] LABS: Basophils # (auto) 0 10 ^3/uL (0-0.2); Eosinophils # (auto) 0 10 ^3/uL (0-0.8); Hemoglobin 8.2 g/dL (13.5-17.5); Lymphocytes # (auto) 0.3 10 ^3/uL (0.4-5.4); Lymphocytes % (auto) 5.4 % (10.0-50.0); Monocytes # (auto) 0.2 10 ^3/uL (0-1.3)
[2020-10-12 10:49] LABS: Basophils % (auto) 0.2 % (0.0-2.0); Eosinophils % (auto) 0.1 % (0.0-7.0); Hematocrit 24.7 % (41.0-53.0); Mean Corpuscular Hemoglobin 31.2 pg (28.0-32.0); Mean Corpuscular Hgb Conc. 33.2 g/dL (32.0-36.0); Mean Corpuscular Volume 94.1 fL (80.0-100.0); Neutrophils # (auto) 5.6 10 ^3/uL (1.6-8.6); Neutrophils % (auto) 91.3 % (37.0-80.0); Nucleated Red Blood Cells % 0.1 %; Platelet Count (auto) 139 10^3/uL (140-450); Red Blood Cells 2.63 10^6/uL (4.5-5.90); Red Cell Distribution Width 15.1 % (11.8-14.3); White Blood Cell 6.1 10^3/uL (4.4-10.8)
[2020-10-12] MEDS: DOPamine 1600MCG/ML D5W 250 ML IV SCH ×2 (11:39→23:48)
[2020-10-12 11:58] LABS: Partial Thromboplastin Time 24.5 sec (23.0-31.2)
--- NOTE | 2020-10-12 13:27 | NUR ---
at bedside. Inserted central line to (L)jugular, triple lumen.
--- NOTE | 2020-10-12 15:03 | NUR ---
X-ray completed on central line insertion. Waiting for results of placement.
[2020-10-12 19:21] LABS: Hemoglobin 7.7 g/dL (13.5-17.5)
[2020-10-12 19:22] LABS: Hematocrit 22.9 % (41.0-53.0)
[2020-10-12] MEDS ORDERED: TPN*HIGH CONC* PER PHARMACY IV NR ×9 (20:00)
[2020-10-13] VITALS (98 sets, daily range): BP systolic 81–147; BP diastolic 45–68
[2020-10-13] MEDS: IPRATROPIUM BROM 0.5 MG/2.5ML INH SOL NEB SCH ×5 (00:33→23:45)
[2020-10-13] MEDS: ALBUTEROL SULF 2.5 MG/0.5ML(0.5%) NEB SOLN NEB SCH ×5 (00:33→23:45)
[2020-10-13] MEDS: ACETYLCYSTEINE 10 %(100MG/ML) SOL 4ML NEB SCH ×5 (00:34→23:45)
[2020-10-13 04:38] LABS: Basophils # (auto) 0 10 ^3/uL (0-0.2); Basophils % (auto) 0.1 % (0.0-2.0); Eosinophils # (auto) 0 10 ^3/uL (0-0.8); Eosinophils % (auto) 0.4 % (0.0-7.0); Hematocrit 23.6 % (41.0-53.0); Hemoglobin 7.6 g/dL (13.5-17.5); Lymphocytes # (auto) 0.5 10 ^3/uL (0.4-5.4); Lymphocytes % (auto) 7.2 % (10.0-50.0); Mean Corpuscular Hemoglobin 30.3 pg (28.0-32.0); Mean Corpuscular Hgb Conc. 32.4 g/dL (32.0-36.0); Mean Corpuscular Volume 93.4 fL (80.0-100.0); Monocytes # (auto) 0.4 10 ^3/uL (0-1.3); Monocytes % (auto) 6.6 % (0.0-12.0); Neutrophils # (auto) 5.5 10 ^3/uL (1.6-8.6); Neutrophils % (auto) 85.7 % (37.0-80.0); Nucleated Red Blood Cells % 0.1 %; Platelet Count (auto) 130 10^3/uL (140-450); Red Blood Cells 2.52 10^6/uL (4.5-5.90); Red Cell Distribution Width 14.8 % (11.8-14.3); White Blood Cell 6.4 10^3/uL (4.4-10.8)
[2020-10-13 04:55] LABS: Albumin 1.2 g/dL (3.4-5.0); Calcium 6.9 mg/dL (8.5-10.1); Magnesium 2.4 mg/dL (1.6-2.6); Potassium 4.5 mmol/L (3.5-5.1)
[2020-10-13 05:00] LABS: BUN/Creatinine Ratio 55.8; Bilirubin, Total 0.6 mg/dL (0.2-1.0); Phosphorus 2.8 mg/dL (2.5-4.90); Total Protein 4.4 g/dL (6.4-8.2)
[2020-10-13] MEDS: ACCU-CHEK COMFORT CURVE STRIP VI SCH ×4 (05:46→23:05)
[2020-10-13] MEDS: HYDROCORTISONE SOD SUCC 100 MG/2ML INJ VIAL IV SCH ×3 (05:48→21:38)
[2020-10-13] MEDS: InsuLIN REG 1unit/0.01ml Soln (100units/ml) SC SCH ×4 (05:49→23:07)
[2020-10-13] MEDS: LIDOCAINE VISCOUS 2% 15ML UD MT SCH ×4 (05:52→23:05)
[2020-10-13] MEDS: MEROPENEM 1GM IVPB 100 ML IV SCH ×2 (10:00→21:38)
[2020-10-13] MEDS: INSULIN LANTUS (GLARGINE) 1 /0.01ml (100units/ml) SC SCH (10:00)
[2020-10-13] MEDS: PANTOPRAZOLE 40 MG/10 ML VIAL INJ IV SCH ×2 (10:00→21:38)
[2020-10-13] MEDS: FREE WATER GT SCH ×4 (11:00→21:38)
[2020-10-13] MEDS ORDERED: FREE WATER GT SCH (12:00)
[2020-10-13] MEDS: NOREPINEPHRINE 8 MG/250ML KIT 250 ML IV SCH (17:00)
--- NOTE | 2020-10-13 19:00 | NUR ---
Opening shift note: Report received on patient. Patient intubated ETT 8.0/ 22CM @ LL, VENT Settings: AC 24, TV 450, FIO2 30%, PEEP 10, Saturation @ 96%. Bilateral lungs clear and diminished. Central line left IJ triple lumen, infusing Fent, TPN, Prop and Levo. OG tube clamped and placement checked. Vergara catheter draining via gravity with yellow/nancy urine. Temp 98.[address] prop in place. Safety precautions in place. Will continue to monitor.
[2020-10-13] MEDS: DOPamine 1600MCG/ML D5W 250 ML IV SCH (19:11)
[2020-10-13] MEDS ORDERED: TPN PER PHARMACY IV NR ×9 (20:00)
[2020-10-13] MEDS ORDERED: TPN*HIGH CONC* PER PHARMACY IV NR ×9 (20:00)
[2020-10-14] VITALS (79 sets, daily range): BP systolic 93–157; BP diastolic 38–69
--- NOTE | 2020-10-14 | NUR ---
Linen change: RN provided linen change and wound care to patient per orders/ recommendations. Patient tolerated interventions well with no s/s of discomfort or distress. Patient repositioned for comfort. RN will continue to monitor and assess patient.
[2020-10-14] MEDS: FREE WATER GT SCH ×5 (02:15→17:29)
[2020-10-14 04:10] LABS: Eosinophils # (auto) 0 10 ^3/uL (0-0.8); Hemoglobin 7.3 g/dL (13.5-17.5); Monocytes # (auto) 0.5 10 ^3/uL (0-1.3); Red Blood Cells 2.37 10^6/uL (4.5-5.90); Red Cell Distribution Width 14.6 % (11.8-14.3)
[2020-10-14 04:11] LABS: Basophils # (auto) 0.1 10 ^3/uL (0-0.2); Basophils % (auto) 0.6 % (0.0-2.0); Eosinophils % (auto) 0.3 % (0.0-7.0); Hematocrit 22.1 % (41.0-53.0); Lymphocytes # (auto) 0.6 10 ^3/uL (0.4-5.4); Lymphocytes % (auto) 7.7 % (10.0-50.0); Mean Corpuscular Hemoglobin 30.7 pg (28.0-32.0); Mean Corpuscular Hgb Conc. 32.8 g/dL (32.0-36.0); Mean Corpuscular Volume 93.5 fL (80.0-100.0); Monocytes % (auto) 6.7 % (0.0-12.0); Neutrophils # (auto) 6.9 10 ^3/uL (1.6-8.6); Neutrophils % (auto) 84.7 % (37.0-80.0); Nucleated Red Blood Cells % 0.1 %; Platelet Count (auto) 129 10^3/uL (140-450); White Blood Cell 8.2 10^3/uL (4.4-10.8)
[2020-10-14] MEDS: fentaNYL Drip 2500mCg/250mlNS 250 ML IV SCH (04:15)
[2020-10-14] MEDS: PROPOFOL 100 ML IV SCH ×2 (04:15→12:33)
[2020-10-14 04:26] LABS: Albumin 1.1 g/dL (3.4-5.0); Calcium 7.1 mg/dL (8.5-10.1); Magnesium 2.5 mg/dL (1.6-2.6); Potassium 5.1 mmol/L (3.5-5.1)
[2020-10-14 04:30] LABS: BUN/Creatinine Ratio 51.9; Bilirubin, Total 0.5 mg/dL (0.2-1.0); Total Protein 4.7 g/dL (6.4-8.2)
[2020-10-14] MEDS: ACCU-CHEK COMFORT CURVE STRIP VI SCH ×3 (05:05→17:33)
[2020-10-14] MEDS: InsuLIN REG 1unit/0.01ml Soln (100units/ml) SC SCH ×3 (05:06→17:33)
[2020-10-14] MEDS: HYDROCORTISONE SOD SUCC 100 MG/2ML INJ VIAL IV SCH ×2 (05:08→14:00)
[2020-10-14] MEDS: LIDOCAINE VISCOUS 2% 15ML UD MT SCH ×3 (05:08→17:30)
--- NOTE | 2020-10-14 05:53 | NUR ---
Family: RN received a call from Daughter Leobardo. Password was verified. Daughter was very emotional and informed RN she had spoken with her family and they have concluded to make patient a DNR and to terminal wean him today. Daughter stated she could not be at patient bedside during terminal wean d/t it being to emotional for her to handle. ERNESTO Lundberg verified with primary family consumer scientist's wishes.
--- NOTE | 2020-10-14 05:55 | NUR ---
MD contacted: Covering MD made aware of patient's condition and family wishes. Per irving FISHER, RN is to inform primary attending MD "More Reynaga" in the AM so her may implement order to terminal wean patient, d/t primary MD having spoken with family regarding the patient's condition. RN will inform day shift RN.
[2020-10-14] MEDS: ALBUTEROL SULF 2.5 MG/0.5ML(0.5%) NEB SOLN NEB SCH ×2 (06:12→11:32)
[2020-10-14] MEDS: IPRATROPIUM BROM 0.5 MG/2.5ML INH SOL NEB SCH ×2 (06:12→11:32)
[2020-10-14] MEDS: ACETYLCYSTEINE 10 %(100MG/ML) SOL 4ML NEB SCH ×2 (06:12→11:32)
--- NOTE | 2020-10-14 08:00 | NUR ---
Opening Shift Note Assumed care of patient, intubated and sedated. No S/S of distress/SOB or pain. See interventions for complete assessment. Bed locked on low position, side rails up x2, bed alarms on at all times, will continue to monitor for changes Q1hr and PRN.
--- NOTE | 2020-10-14 08:20 | NUR ---
Received call from Dr Anthony, updated on patient's status. No new orders at this time.
[2020-10-14] MEDS ORDERED: FLUCONAZOLE 200MG/100ML 100 ML IV SCH (09:00)
--- NOTE | 2020-10-14 09:30 | NUR ---
Re- paged Dr Marita Singh for DNR orders. Awaiting call back.
--- NOTE | 2020-10-14 09:54 | NUR ---
Spoke to Michael from [facility], needed information provided. Per Michael patient is not a candidate for organ donation due to age and neurologic status, to call for time of . Reference number [id number].
[2020-10-14] MEDS: INSULIN LANTUS (GLARGINE) 1 /0.01ml (100units/ml) SC SCH (10:00)
[2020-10-14] MEDS: MEROPENEM 1GM IVPB 100 ML IV SCH (10:00)
[2020-10-14] MEDS: PANTOPRAZOLE 40 MG/10 ML VIAL INJ IV SCH (10:00)
--- NOTE | 2020-10-14 10:00 | NUR ---
Received call back from Dr Marita Singh. DNR, comfort measures and terminal wean orders received, verified with another RN Yasir. Will carry out.
--- NOTE | 2020-10-14 11:05 | NUR ---
Spoke to patient's daughter Leobardo over the phone, able to provide password. Inquired if there's a family who wanted to come and see patient for the last time before we Terminal wean, daughter stated " No."
--- NOTE | 2020-10-14 11:21 | NUR ---
Nutrition Followup Note Wt 89.4 kg Pt was intubated and sedated at time of rounds with TPN at 45ml/hr providing 1123 kcal, 75g protein. Per MD note pt family decided to make pt DNR and to terminally wean pt. Consider nutrition per MD and family for comfort Est energy needs BW 86 [id number] kcal (23-25 kcal/kg BW), Est protein needs: 68-86 g (0.8-1.0g/kg BW r/t elev RFT severe hypoalb) Will reassess prn. Labs: BUN 42H, GLUC 162H, Ca 7.1L Alb 1.1L BM: Pt with 6 BMs on 10/09 per RN note Skin: BS 13 mod risk,full details in care transport nurse note PES: 1) Altered nutrition related lab values r.t current chronic medical condition aeb elev RFT hypocalcemia, severe hypoalb hyperglycemia 2) Impaired swallowing r.t current medical condition aeb pt`s intubated sedated with order of NPO Comments: Will continue to monitor NPO status, skin status. F/u high 2-3 days Rec: 1) Consider nutrition for comfort per MD and family orders d/t to terminal wean 2) continue current plan of care
--- NOTE | 2020-10-14 11:58 | NUR ---
Pt not seen per RN. Addendum: 10/14/20 at 1200 by Clarence Mueller ANODE WORKER Amended: Links added.
[2020-10-14] MEDS: DOPamine 1600MCG/ML D5W 250 ML IV SCH (12:06)
--- NOTE | 2020-10-14 12:22 | NUR ---
Received call from patient's Nephew Lemuel who's able to provide password. Updated on patient's status and POC. Informed of planned terminal wean, verbalized understanding. All questions and concerns addressed.
--- NOTE | 2020-10-14 12:30 | NUR ---
Paged Dr Anthony regarding family's plan for home hospice after terminal wean and the need to remove chest tube. Awaiting call back.
[2020-10-14] MEDS: MORPHINE SULF INJ 2 MG/ML SYRINGE 1ML IV PRN ×3 (13:11→22:17)
[2020-10-14] MEDS: LORazepam 2MG/ML-1ML VIAL IV PRN ×2 (13:11→17:35)
--- NOTE | 2020-10-14 13:15 | NUR ---
Respiratory note: PT EXTUBATED PER DRS ORDER. ERNESTO CARTER AT BEDSIDE DURING EXTUBATION. PT ORALLY SUCTIONED WITH SCANT RETURN.
--- NOTE | 2020-10-14 13:30 | NUR ---
Terminal wean at 1315 at bedside by Teodora ROBINS. Drop Wire Builder Rochelle Spencer informed.
--- NOTE | 2020-10-14 13:48 | NUR ---
Spoke to patient's daughter Leobardo over the phone. Informed terminal wean was done at 1315, verbalized understanding. All questions and concerns addressed.
--- NOTE | 2020-10-14 16:25 | NUR ---
SS consult for hospice placement. Pt is currently intubated and unable to communicate. Contacted daughter, Leobardo, to discuss terminal wean and expectations of terminal wean. Per daughter, if pt should linger she and family would like him to go on hospice but he will need placement. Pt was residing in a small mobile home that is unable to accomodate pt in his condition. Discussed with daughter placement options to include SNF Daughter stated that the family will have to financially pitch in to contribute to pt's placement. Daughter verbalizing concerns if pt does not make it to the end of the month will there be a refund. Discussed with daughter and per her consent contacted [facility] and placement was secured with [facility]. Daughter verbalize no hospice preference and agrees with hospice recommended by facility. Contacted [facility] ( [phone][facility] and faxed clinical information. Pt accepted and daughter signing consents this evening. If pt remains stable he will be discharged tomorrow afternoon, tentative pickup time of 2pm
[2020-10-14] MEDS: NOREPINEPHRINE 8 MG/250ML KIT 250 ML IV SCH (17:00)
--- NOTE | 2020-10-14 17:45 | NUR ---
Dr Anthony at bedside, updated on patient's status. Patient seen and examined. Plan to discontinue chest tube whenever there is already ETA for pick -up.
[2020-10-14] MEDS ORDERED: TPN*HIGH CONC* PER PHARMACY IV NR ×8 (20:00)
[2020-10-14] MEDS ORDERED: TPN PER PHARMACY 0 ML IV SCH (20:15)
[2020-10-14] MEDS ORDERED: ONDANSETRON HCL 4 MG/2 ML VIAL IV PRN (20:30)
[2020-10-14] MEDS ORDERED: DOCUSATE ORAL LIQUID 100 MG/10 ML UD GT PRN (20:30)
--- NOTE | 2020-10-14 22:59 | NUR ---
X RAY CHEST X RAY WAS ORDERED AT 2200 AFTER CHEST TUBE CLAMPED BUT IT WAS NOT DONE. CALLED X RAY AND TOLD TO DO IT NOW.
[2020-10-15] VITALS (9 sets, daily range): BP systolic 81–128; BP diastolic 40–60
[2020-10-15] MEDS: MORPHINE SULF INJ 2 MG/ML SYRINGE 1ML IV PRN (02:49)
[2020-10-15] MEDS: LORazepam 2MG/ML-1ML VIAL IV PRN (02:49)
--- NOTE | 2020-10-15 04:30 | NUR ---
FAMILY RECEIVED PHONE CALL FROM PT'S DAUGHTER. PASSWORD CONFIRMED. PATIENT'S DAUGHTER UPDATED ON PATIENT'S STATUS.
--- NOTE | 2020-10-15 07:05 | NUR ---
Assumed care of pt., report received per ERNESTO Celis. No distress noted, pt. attached to central monitor and reading sinus rhythm 80's, B/P stable, will cont.to monitor for any changes, assessment ongoing.
--- NOTE | 2020-10-15 08:00 | NUR ---
pt. noted to be deteriorating, on comfort measures presently, DNR, family called and message left for Leobardo (daughter), will cont.to monitor for any changes, assessment ongoing.
--- NOTE | 2020-10-15 08:15 | NUR ---
pt. deteriorating further, daughter called again, message left for Leobardo (daughter), will cont.to monitor for any changes, assessment ongoing.
--- NOTE | 2020-10-15 08:30 | NUR ---
pt. noted asystole, no heart tone or palp pulse noted, no b/p obtained, sat monitor flat, manager of warehouse notified, daughter called again and message left, see (record of /authorization for release of remains) for additional information and times of notification recorded, will cont.to attempt to reach family.
--- NOTE | 2020-10-15 11:45 | NUR ---
pt. remains taken to [facility], will cont.to contact family.
== END 2020-10-15 11:50 | disposition expired | DRG 870 ==
LOC: EDBD 10:31 → ER 10:31 → TELE 10:32 → ICU WEST 16:20
PROVIDERS: ADMIT Nurse Practitioner Acute Care; ATTEND Hospitalist
PROC: 5A1955Z Respiratory Ventilation, Greater than 96 Consecutive Hours (ICD-10-PCS; principal; 2020-09-24)
PROC: 0BH17EZ Insertion of Endotracheal Airway into Trachea, Via Natural or Artificial Opening (ICD-10-PCS; 2020-09-24)
PROC: 02HV33Z Insertion of Infusion Device into Superior Vena Cava, Percutaneous Approach (ICD-10-PCS; 2020-09-24)
PROC: B548ZZA Ultrasonography of Superior Vena Cava, Guidance (ICD-10-PCS; 2020-09-24)
PROC: 5A12012 Performance of Cardiac Output, Single, Manual (ICD-10-PCS; 2020-09-24)
PROC: 5A09457 Assistance with Respiratory Ventilation, 24-96 Consecutive Hours, Continuous Positive Airway Pressure (ICD-10-PCS; 2020-10-05)
PROC: 0WH933Z Insertion of Infusion Device into Right Pleural Cavity, Percutaneous Approach (ICD-10-PCS; 2020-10-09)
PROC: 0W993ZZ Drainage of Right Pleural Cavity, Percutaneous Approach (ICD-10-PCS; 2020-10-09)
PROC: 0W9B3ZZ Drainage of Left Pleural Cavity, Percutaneous Approach (ICD-10-PCS; 2020-10-10)
PROC: 0B978ZZ Drainage of Left Main Bronchus, Via Natural or Artificial Opening Endoscopic (ICD-10-PCS; 2020-10-11)
PROC: 0BH17EZ Insertion of Endotracheal Airway into Trachea, Via Natural or Artificial Opening (ICD-10-PCS; 2020-10-11)
PROC: 5A1945Z Respiratory Ventilation, 24-96 Consecutive Hours (ICD-10-PCS; 2020-10-11)
PROC: 0B938ZZ Drainage of Right Main Bronchus, Via Natural or Artificial Opening Endoscopic (ICD-10-PCS; 2020-10-11)
PROC: 02HV33Z Insertion of Infusion Device into Superior Vena Cava, Percutaneous Approach (ICD-10-PCS; 2020-10-12)
PROC: B548ZZA Ultrasonography of Superior Vena Cava, Guidance (ICD-10-PCS; 2020-10-12)
DX: A41.9 Sepsis, unspecified organism (principal); E11.11 Type 2 diabetes mellitus with ketoacidosis with coma; G93.41 Metabolic encephalopathy; J69.0 Pneumonitis due to inhalation of food and vomit; R65.21 Severe sepsis with septic shock; J96.01 Acute respiratory failure with hypoxia; N17.0 Acute kidney failure with tubular necrosis; E44.0 Moderate protein-calorie malnutrition; D61.818 Other pancytopenia; E87.0 Hyperosmolality and hypernatremia; J93.83 Other pneumothorax; G93.1 Anoxic brain damage, not elsewhere classified; G72.81 Critical illness myopathy; D62 Acute posthemorrhagic anemia; Z20.828 Contact with and (suspected) exposure to other viral communicable diseases; I46.9 Cardiac arrest, cause unspecified; N18.9 Chronic kidney disease, unspecified; E86.0 Dehydration; E87.6 Hypokalemia; E83.39 Other disorders of phosphorus metabolism; E83.51 Hypocalcemia; Z68.29 Body mass index [BMI] 29.0-29.9, adult
CPT/HCPCS: 31645; 36415; 36600; 70450; 71045; 71250; 76700; 80048; 80053; 80061; 80076; 80307; 81001; 82010; 82040; 82140; 82248; 82533; 82550; 82570; 82805; 82962; 83036; 83605; 83735; 83880; 83930; 84100; 84156; 84300; 84478; 84484; 85007; 85014; 85018; 85025; 85027; 85610; 85730; 86850; 86900; 86901; 87040; 87070; 87077; 87081; 87205; 87426; 89051; 92950; 93005; 93306; 93970; 94002; 94003; 94640; 94660; 94668; 95819; 96361; 96374; 96375; 97110; A4618; C9113; G0378; J0610; J1450; J1815; J2185; J2250; J2543; J2704; J3480; J3490; J7060; Q9956